=== PATIENT | female | born 1990 | race Caucasian/White ===

== ENCOUNTER 2018-11-07 16:49 | Emergency (ER) | END 2018-11-07 20:46 | disposition left against medical advice (07) | LOC: ER 16:49 | DX: Z53.21 Procedure and treatment not carried out due to patient leaving prior to being seen by health care provider (principal) ==

== ENCOUNTER 2019-03-05 13:31 | Emergency (ER) | payer SELFPAY ==
[2019-03-05] MEDS ORDERED: NORMAL SALINE 1000 ML 1,000 ML IV ONE ×3 (14:40→18:55)
[2019-03-05] MEDS ORDERED: ONDANSETRON HCL INJ/PF 4 MG/2 ML SDV IV ONE ×2 (14:40→15:50)
--- NOTE | 2019-03-05 14:43 | ER Document Report ---
ED General - General Chief Complaint: ETOH Abuse Stated Complaint: VOMITING Time Seen by Provider: 03/05/19 14:36 Mode of Arrival: Wheelchair Information source: Patient Notes: Patient presents emergency department with complaints of possible alcohol poisoning. Patient reports she drank a bottle AND a half of wine last night. Quit drinking at approximately 130. Reports she woke up at 430 vomiting. She cannot hold any fluids down. She complains of low back pain but denies abdominal pain. Denies headache fever diarrhea. Patient is actively vomiting. TRAVEL OUTSIDE OF THE [place] IN LAST 30 DAYS: No - HPI Onset: This morning Onset/Duration: Sudden Quality of pain: Achy Pain Level: 2 Associated symptoms: Vomiting Exacerbated by: Denies Relieved by: Denies Similar symptoms previously: No Recently seen / treated by doctor: No - Related Data Allergies/Adverse Reactions: No Known Allergies Allergy (Verified 03/05/19 13:31) Past Medical History - General Information source: Patient Last Menstrual Period: unsure - Social History Smoking Status: Unknown if Ever Smoked Cigarette use (# per day): No Frequency of alcohol use: Occasional Drug Abuse: None Lives with: Alone Family History: None Patient has suicidal ideation: No Patient has homicidal ideation: No - Medical History Medical History: Negative Surgical Hx: Negative Review of Systems - Review of Systems Notes: Review HPI for review of systems., All other systems negative Physical Exam - Vital signs Vitals: Temp Pulse Resp BP Pulse Ox 98.7 F 76 16 131/80 H 100 03/05/19 13:38 03/05/19 13:38 03/05/19 13:38 03/05/19 13:38 03/05/19 13:38 - Notes Notes: PHYSICAL EXAMINATION: GENERAL: looks like she doesnt feel good HEAD: Atraumatic, normocephalic. EYES: Pupils equal round , extraocular movements intact, sclera anicteric, conjunctiva are normal. ENT: nares patent, . Moist mucous membranes. NECK: Normal range of motion, supple without lymphadenopathy LUNGS: CTAB and equal. No wheezes rales or rhonchi. HEART: Regular rate and rhythm without murmurs ABDOMEN: Soft, no tenderness. No guarding, no rebound BACK: Reports low back ache EXTREMITIES: Normal range of motion, no pitting edema. No cyanosis. NEUROLOGICAL: Cranial nerves grossly intact. PSYCH: Normal mood, normal affect. SKIN: Warm, Dry, normal turgor, no rashes or lesions noted Course - Re-evaluation Re-evalutation: 03/05/19 14:43 Patient actively vomiting we will treat with fluids and Zofran. 03/05/19 15:50 Patient reports she still continued to vomit very shaky and cold. - Vital Signs Vital signs: Temp Pulse Resp BP Pulse Ox 98.7 F 76 16 131/80 H 100 03/05/19 13:38 03/05/19 13:38 03/05/19 13:38 03/05/19 13:38 03/05/19 13:38 - Laboratory Result Diagrams: 03/05/19 14:50 03/05/19 14:50 Laboratory results interpreted by me: 03/05/19 03/05/19 03/05/19 14:50 14:50 15:50 WBC 29.5 H Seg Neuts % (Manual) 97 H Lymphocytes % (Manual) 3 L Monocytes % (Manual) 0 L Abs Neuts (Manual) 28.6 H Abs Monocytes (Manual) 0.0 L Carbon Dioxide 14 L Anion Gap 25 H Calcium 10.3 H AST 111 H ALT 115 H Total Protein 9.8 H Albumin 5.9 H Urine Protein 30 H Urine Ketones 80 H Discharge - Discharge Clinical Impression: Vomiting Condition: Stable
[2019-03-05 15:10] LABS: HEMATOCRIT 44.8 % (36.0-47.0); HEMOGLOBIN 15.2 g/dL (12.0-15.5); MEAN CORPUSCULAR HEMOGLOBIN 32.3 pg (27.0-33.4); MEAN CORPUSCULAR HGB CONC 33.9 g/dL (32.0-36.0); MEAN CORPUSCULAR VOLUME 95 fl (80-97); PLATELET COUNT 286 10^3/uL (150-450); RED BLOOD COUNT 4.69 10^6/uL (3.72-5.28); RED CELL DISTRIBUTION WIDTH 13.1 % (11.5-14.0); WHITE BLOOD COUNT 29.5 10^3/uL (4.0-10.5)
[2019-03-05 15:35] LABS: ABSOLUTE LYMPHOCYTES# (MANUAL) 0.9 10^3/uL (0.5-4.7); BASOPHILS % (MANUAL) 0 % (0-2); EOSINOPHILS % (MANUAL) 0 % (0-6); LYMPHOCYTES % (MANUAL) 3 % (13-45); MONOCYTES % (MANUAL) 0 % (3-13); PLATELET COMMENT ADEQUATE; RBC MORPHOLOGY COMMENT NORMO-CYTIC/CHROMIC; SEGMENTED NEUTROPHILS % (MAN) 97 % (42-78); TOTAL CELLS COUNTED 100
[2019-03-05 15:40] LABS: ALANINE AMINOTRANSFERASE 115 U/L (9-52); ALBUMIN 5.9 g/dL (3.5-5.0); ALKALINE PHOSPHATASE 72 U/L (38-126); ASPARTATE AMINO TRANSFERASE 111 U/L (14-36); BILIRUBIN,DIRECT 0.3 mg/dL (0.0-0.4); BILIRUBIN,TOTAL 0.5 mg/dL (0.2-1.3); BLOOD UREA NITROGEN 15 mg/dL (7-20); CALCIUM 10.3 mg/dL (8.4-10.2); CARBON DIOXIDE 14 mmol/L (22-30); CHLORIDE 104 mmol/L (98-107); GLUCOSE 104 mg/dL (75-110); POTASSIUM 4.7 mmol/L (3.6-5.0); SODIUM 142.9 mmol/L (137-145); TOTAL PROTEIN 9.8 g/dL (6.3-8.2)
[2019-03-05 15:41] LABS: ANION GAP 25 (5-19)
[2019-03-05 16:14] LABS: APPEARANCE,URINE SLIGHTLY-CLOUDY; BILIRUBIN,URINE NEGATIVE (NEGATIVE); COLOR,URINE YELLOW; GLUCOSE, URINE NEGATIVE (NEGATIVE); KETONES,URINE 80 mg/dL (NEGATIVE); LEUKOCYTE ESTERASE,URINE NEGATIVE (NEGATIVE); NITRITE,URINE NEGATIVE (NEGATIVE); PROTEIN,URINE 30 mg/dL (NEGATIVE); URINE SPECIFIC GRAVITY 1.018; UROBILINOGEN,URINE NEGATIVE mg/dL (<2.0)
--- NOTE | 2019-03-05 16:31 | ER Document Report ---
ED Medical Screen (RME) - General Chief Complaint: ETOH Abuse Stated Complaint: VOMITING Time Seen by Provider: 03/05/19 14:36 Mode of Arrival: Wheelchair Information source: Patient Notes: Patient presents emergency department with complaints of possible alcohol poisoning. Patient reports she drank a bottle AND a half of wine last night. Quit drinking at approximately 130. Reports she woke up at 430 vomiting. She cannot hold any fluids down. She complains of low back pain but denies abdominal pain. Denies headache fever diarrhea. Patient is actively vomiting. 03/05/19 14:43 Patient actively vomiting we will treat with fluids and Zofran. 03/05/19 15:50 Patient reports she still continued to vomit very shaky and cold. Zofran and another liter of fluid ordered 03/05/19 16:31 Patient is still actively vomiting charge nurse noted. Patient is to be taken to her room I have greeted and performed a rapid initial assessment of this patient. A comprehensive ED assessment and evaluation of the patient, analysis of test results and completion of the medical decision making process will be conducted by additional ED providers. Dictation of this chart was performed using voice recognition software; therefore, there may be some unintended grammatical errors. TRAVEL OUTSIDE OF THE [place] IN LAST 30 DAYS: No - Related Data Allergies/Adverse Reactions: No Known Allergies Allergy (Verified 03/05/19 13:31) Past Medical History - General Last Menstrual Period: unsure - Social History Cigarette use (# per day): No Chew tobacco use (# tins/day): No Frequency of alcohol use: Occasional Drug Abuse: None Renal/ Medical History: Denies: Hx Peritoneal Dialysis Surgical Hx: Negative Physical Exam - Vital signs Vitals: Temp Pulse Resp BP Pulse Ox 98.7 F 76 16 131/80 H 100 03/05/19 13:38 03/05/19 13:38 03/05/19 13:38 03/05/19 13:38 03/05/19 13:38 Course - Vital Signs Vital signs: Temp Pulse Resp BP Pulse Ox 98.7 F 76 16 131/80 H 100 03/05/19 13:38 03/05/19 13:38 03/05/19 13:38 03/05/19 13:38 03/05/19 13:38 - Laboratory Result Diagrams: 03/05/19 14:50 03/05/19 14:50 Laboratory results interpreted by me: 03/05/19 03/05/19 03/05/19 14:50 14:50 15:50 WBC 29.5 H Seg Neuts % (Manual) 97 H Lymphocytes % (Manual) 3 L Monocytes % (Manual) 0 L Abs Neuts (Manual) 28.6 H Abs Monocytes (Manual) 0.0 L Carbon Dioxide 14 L Anion Gap 25 H Calcium 10.3 H AST 111 H ALT 115 H Total Protein 9.8 H Albumin 5.9 H Urine Protein 30 H Urine Ketones 80 H Doctor's Discharge - Discharge Clinical Impression: Vomiting Condition: Stable
--- NOTE | 2019-03-05 19:07 | ER Document Report ---
ED General - General Chief Complaint: ETOH Abuse Stated Complaint: VOMITING Time Seen by Provider: 03/05/19 14:36 Mode of Arrival: Wheelchair TRAVEL OUTSIDE OF THE [place] IN LAST 30 DAYS: No - HPI Notes: Patient is a 28-year-old female presents emergency department for evaluation of vomiting, headache, just generally not feeling well. She states that last night she was drinking alcohol heavily. She admits to drinking over a bottle and a half of red wine. She was by herself. She states that today she has headache, vomiting, generally just feels poor. She denies use of salome mitten drugs with the exception of marijuana, which she only uses occasionally. I asked her if she drinks like this regularly, her reply is "I cannot, I have to have a job." This is not the worst headache of her life. She denies any trauma. - Related Data Allergies/Adverse Reactions: No Known Allergies Allergy (Verified 03/05/19 13:31) Past Medical History - General Information source: Patient Last Menstrual Period: unsure - Social History Smoking Status: Never Smoker Cigarette use (# per day): No Chew tobacco use (# tins/day): No Frequency of alcohol use: Occasional Drug Abuse: None Family History: Other - Unknown, patient is adopted Patient has suicidal ideation: No Patient has homicidal ideation: No Renal/ Medical History: Denies: Hx Peritoneal Dialysis Surgical Hx: Negative Review of Systems - Review of Systems Constitutional: See HPI EENT: No symptoms reported Cardiovascular: No symptoms reported Respiratory: No symptoms reported Gastrointestinal: See HPI Genitourinary: No symptoms reported Musculoskeletal: No symptoms reported Skin: No symptoms reported Neurological/Psychological: No symptoms reported Physical Exam - Vital signs Vitals: Temp Pulse Resp BP Pulse Ox 98.7 F 76 16 131/80 H 100 03/05/19 13:38 03/05/19 13:38 03/05/19 13:38 03/05/19 13:38 03/05/19 13:38 - Notes Notes: Vital signs reviewed, please refer to chart. Head is normocephalic, atraumatic. Pupils equal round, reactive to light. Neck is supple without meningismus. Heart is regular rate and rhythm. Lungs are clear to auscultation bilaterally. Abdomen is soft, nontender, normoactive bowel sounds throughout. Extremities without cyanosis, clubbing. Posterior calves are nontender. Peripheral pulses are equal. Skin is warm and dry. Patient is awake, alert, oriented x3. Cranial nerves II - XII are grossly intact without focal neurological deficits. Strength is plus 5 out of 5 bilateral lower extremities. Sensation is intact. Reflexes symmetrical. Intact [id number], rapid alternating movements, [id number]. Course - Re-evaluation Re-evalutation: 03/05/19 19:03 [facility] emerge department for evaluation. Laboratory investigations were obtained, she was given IV fluids. Laboratory investigations revealed a significant anion gap metabolic acidosis. My strong suspicion is this is a lactic acidosis secondary to ethanol ingestion. Patient is given IV fluids, is feeling significantly improved. She is warned against the dangers of binge drinking. I do have my suspicions that she does have a chronic alcohol dependence. I will give her information in regards to that. Otherwise, she will be sent home with nausea medication, close follow-up. She is to return to the ED with worsening or new concerning symptoms of any sort. - Vital Signs Vital signs: Temp Pulse Resp BP Pulse Ox 98.7 F 76 20 114/63 98 03/05/19 13:38 03/05/19 13:38 03/05/19 18:01 03/05/19 18:01 03/05/19 18:01 - Laboratory Result Diagrams: 03/05/19 14:50 03/05/19 14:50 Laboratory results interpreted by me: 03/05/19 03/05/19 03/05/19 14:50 14:50 15:50 WBC 29.5 H Seg Neuts % (Manual) 97 H Lymphocytes % (Manual) 3 L Monocytes % (Manual) 0 L Abs Neuts (Manual) 28.6 H Abs Monocytes (Manual) 0.0 L Carbon Dioxide 14 L Anion Gap 25 H Calcium 10.3 H AST 111 H ALT 115 H Total Protein 9.8 H Albumin 5.9 H Urine Protein 30 H Urine Ketones 80 H Discharge - Discharge Clinical Impression: Nausea and vomiting, Increased anion gap metabolic acidosis, Alcohol abuse Condition: Stable Disposition: HOME, SELF-CARE Instructions: Vomiting ([facility]), Intravenous (IV) Fluids ([facility]) Additional Instructions: Follow-up with primary care next week. Avoid binge drinking in the future. You should consider quitting drinking alcohol entirely. If you develop worsening or new concerning symptoms of any sort, return immediately to the emergency depar tment for reevaluation. Referrals: JOSELUIS CROUCH MD [ACTIVE STAFF] - Follow up as needed [facility] [NO [facility]AL MD] - Follow up as needed
[2019-03-05 20:37] VITALS: BP 111/55
[2019-03-05] MEDS ORDERED: ONDANSETRON ODT 4 MG TAB (6 TAB/ER DISP) PO PRN (20:46)
== END 2019-03-05 20:53 | disposition home or self-care (01) ==
LOC: ER 13:31
DX: R11.2 Nausea with vomiting, unspecified (principal); E87.2 Acidosis; F10.10 Alcohol abuse, uncomplicated; R51 Headache
CPT/HCPCS: 96376; 99284; 96361; 96374; 36415; 84703; 85025; 80053; 81001; J2405; J7030

== ENCOUNTER 2019-03-06 17:27 | Emergency (ER) | payer SELFPAY ==
--- NOTE | 2019-03-06 19:44 | ER Document Report ---
Addendum entered and electronically signed by ANGELITO BARBOSA PA-C 03/06/19 19:45: Course - Re-evaluation Re-evalutation: 03/06/19 19:45 Neg yesterday. - Vital Signs Vital signs: Temp Pulse Resp BP Pulse Ox 98.4 F 64 20 144/82 H 99 03/06/19 18:21 03/06/19 18:21 03/06/19 18:21 03/06/19 18:21 03/06/19 18:21 Original Note: ED Medical Screen (RME) - General Chief Complaint: Nausea/Vomiting Stated Complaint: DEHYDRATION Time Seen by Provider: 03/06/19 19:39 TRAVEL OUTSIDE OF THE [place] IN LAST 30 DAYS: No - HPI Notes: 03/06/19 19:43 Patient is a 28-year-old female with a history of anxiety/depression who presents complaining of constant nausea and vomiting since 4:30 AM. Patient states that she does have some abdominal soreness after vomiting so many times, but no other pain. Patient has been noted to be continuously vomiting in the waiting room by our staff at the front. She was seen yesterday for similar symptoms with a suspicion of binge drinking as a partial culprit. Patient states that she has been taking the nausea medicine that she was sent home with with no relief. She does have a surgical history of appendectomy. Denies CLEMENTE, fever, neck pain, URI, CP, SOB, dysuria, back pain, or rash. I have treated and performed a rapid initial assessment of this patient. A comprehensive ED assessment and evaluation of the patient, analysis of test results and completion of medical decision making process will be conducted by additional ED providers. PHYSICAL EXAMINATION: GENERAL: Well-appearing, well-nourished and in no acute distress. A&Ox4. Answers questions appropriately. Dry heaving in triage. LUNGS: Breath sounds clear to auscultation bilaterally and equal. No wheezes rales or rhonchi. HEART: Regular rate and rhythm without murmurs, rubs, gallops. ABDOMEN: Soft, nondistended abdomen. No guarding, no rebound. Normal bowel sounds present. No CVA tenderness bilaterally. + mild epigastric tenderness (cannot elicit thorough abd exam w/o bed, however). - Related Data Allergies/Adverse Reactions: No Known Allergies Allergy (Verified 03/05/19 13:31) Past Medical History Renal/ Medical History: Denies: Hx Peritoneal Dialysis Physical Exam - Vital signs Vitals: Temp Pulse Resp BP Pulse Ox 98.4 F 64 20 144/82 H 99 03/06/19 18:21 03/06/19 18:21 03/06/19 18:21 03/06/19 18:21 03/06/19 18:21 Course - Vital Signs Vital signs: Temp Pulse Resp BP Pulse Ox 98.4 F 64 20 144/82 H 99 03/06/19 18:21 03/06/19 18:21 03/06/19 18:21 03/06/19 18:21 03/06/19 18:21
[2019-03-06] MEDS ORDERED: PROMETHAZINE HCL INJ 25 MG/1 ML VIAL IM ONE (19:45)
[2019-03-06] MEDS ORDERED: NORMAL SALINE 1000 ML 1,000 ML IV PRN (19:45)
[2019-03-06 21:42] LABS: HEMATOCRIT 37.9 % (36.0-47.0); HEMOGLOBIN 13.3 g/dL (12.0-15.5); MEAN CORPUSCULAR HEMOGLOBIN 32.4 pg (27.0-33.4); MEAN CORPUSCULAR VOLUME 93 fl (80-97); PLATELET COUNT 197 10^3/uL (150-450); RED BLOOD COUNT 4.09 10^6/uL (3.72-5.28); RED CELL DISTRIBUTION WIDTH 13.2 % (11.5-14.0); WHITE BLOOD COUNT 18.1 10^3/uL (4.0-10.5)
[2019-03-06 21:59] LABS: ABSOLUTE LYMPHOCYTES# (MANUAL) 0.9 10^3/uL (0.5-4.7); BAND NEUTROPHILS % (MANUAL) 1 % (3-5); BASOPHILS % (MANUAL) 0 % (0-2); EOSINOPHILS % (MANUAL) 0 % (0-6); LYMPHOCYTES % (MANUAL) 5 % (13-45); MONOCYTES % (MANUAL) 0 % (3-13); SEGMENTED NEUTROPHILS % (MAN) 94 % (42-78); TOTAL CELLS COUNTED 100
[2019-03-06 22:00] LABS: RBC MORPHOLOGY COMMENT NORMO-CYTIC/CHROMIC
[2019-03-06 22:01] LABS: PLATELET COMMENT ADEQUATE
[2019-03-06 22:03] LABS: ALANINE AMINOTRANSFERASE 96 U/L (9-52); ALBUMIN 4.8 g/dL (3.5-5.0); ALKALINE PHOSPHATASE 56 U/L (38-126); ANION GAP 13 (5-19); ASPARTATE AMINO TRANSFERASE 90 U/L (14-36); BILIRUBIN,DIRECT 0.2 mg/dL (0.0-0.4); BILIRUBIN,TOTAL 0.8 mg/dL (0.2-1.3); BLOOD UREA NITROGEN 9 mg/dL (7-20); CALCIUM 9.6 mg/dL (8.4-10.2); CARBON DIOXIDE 24 mmol/L (22-30); CHLORIDE 100 mmol/L (98-107); GLUCOSE 110 mg/dL (75-110); LIPASE 51.4 U/L (23-300); POTASSIUM 3.8 mmol/L (3.6-5.0); SODIUM 136.6 mmol/L (137-145); TOTAL PROTEIN 7.8 g/dL (6.3-8.2)
--- NOTE | 2019-03-07 00:32 | ER Document Report ---
ED General - General Chief Complaint: Nausea/Vomiting Stated Complaint: DEHYDRATION Time Seen by Provider: 03/06/19 19:39 TRAVEL OUTSIDE OF THE [place] IN LAST 30 DAYS: No - Related Data Allergies/Adverse Reactions: No Known Allergies Allergy (Verified 03/05/19 13:31) Past Medical History - Social History Smoking Status: Unknown if Ever Smoked Chew tobacco use (# tins/day): No Frequency of alcohol use: Social Drug Abuse: None Family History: Other - Unknown, patient is adopted Patient has suicidal ideation: No Patient has homicidal ideation: No Renal/ Medical History: Denies: Hx Peritoneal Dialysis Psychiatric Medical History: Reports: Hx Depression Physical Exam - Vital signs Vitals: Temp Pulse Resp BP Pulse Ox 98.4 F 64 20 144/82 H 99 03/06/19 18:21 03/06/19 18:21 03/06/19 18:21 03/06/19 18:21 03/06/19 18:21 Course - Vital Signs Vital signs: Temp Pulse Resp BP Pulse Ox 98.4 F 64 20 144/82 H 99 03/06/19 18:21 03/06/19 18:21 03/06/19 18:21 03/06/19 18:21 03/06/19 18:21 - Laboratory Result Diagrams: 03/06/19 21:30 03/06/19 21:30 Laboratory results interpreted by me: 03/06/19 03/06/19 21:30 21:30 WBC 18.1 H Seg Neuts % (Manual) 94 H Band Neutrophils % 1 L Lymphocytes % (Manual) 5 L Monocytes % (Manual) 0 L Abs Neuts (Manual) 17.2 H Abs Monocytes (Manual) 0.0 L Sodium 136.6 L AST 90 H ALT 96 H
[2019-03-07] MEDS ORDERED: CAPSAICIN HP 0.075% CREAM 60 GM TP ONE (00:42)
--- NOTE | 2019-03-07 00:42 | ER Document Report ---
ED General - General Chief Complaint: Nausea/Vomiting Stated Complaint: DEHYDRATION Time Seen by Provider: 03/06/19 19:39 Notes: Patient is a 28-year-old female who presents to the emergency department with a chief complaint of vomiting. She was seen in the emergency department 2 days ago with the same issues. She states that she took her Zofran that was given to her the other day, but continues to have vomiting. Has not been able to keep anything down. She received Phenergan in triage, and states that she does feel a little better. Patient does admit to alcohol use, but states that she only drinks sometimes. I asked her also if she uses marijuana and she does use marijuana on a daily basis and has been for a while. She denies hematemesis, hematochezia, fever, or any other symptoms. Denies any fever. TRAVEL OUTSIDE OF THE [place] IN LAST 30 DAYS: No - Related Data Allergies/Adverse Reactions: No Known Allergies Allergy (Verified 03/05/19 13:31) Past Medical History - Social History Smoking Status: Unknown if Ever Smoked Chew tobacco use (# tins/day): No Frequency of alcohol use: Social Drug Abuse: None Family History: Other - Unknown, patient is adopted Patient has suicidal ideation: No Patient has homicidal ideation: No Renal/ Medical History: Denies: Hx Peritoneal Dialysis Psychiatric Medical History: Reports: Hx Depression Review of Systems - Review of Systems Notes: REVIEW OF SYSTEMS: CONSTITUTIONAL : Denies recent illness. Denies recent unintentional weight loss. Denies fever, chills, or sweats. EENT: Denies eye, ear, throat, or mouth pain, discharge, or symptoms. Denies nasal or sinus congestion. CARDIOVASCULAR: Denies chest pain. RESPIRATORY: Denies shortness of breath, cough, congestion, difficulty breathing, or wheezing. GASTROINTESTINAL: See HPI GENITOURINARY: Denies difficulty urinating, burning, blood in urine, urgency or frequency. MUSCULOSKELETAL: Denies neck and back pain. Denies joint pain or swelling. SKIN: Denies rash, itchiness, or lesions HEMATOLOGIC : Denies easy bruising or bleeding. LYMPHATIC: Denies swollen, painful, enlarged glands. NEUROLOGICAL: Denies no numbness or tingling denies weakness. Denies headache. Denies altered mental status. Denies alteration in speech. PSYCHIATRIC: Denies stress, anxiety, alteration in sleep patterns, or depres stephani. All other systems reviewed and negative. Physical Exam - Vital signs Vitals: Temp Pulse Resp BP Pulse Ox 98.4 F 64 20 144/82 H 99 03/06/19 18:21 03/06/19 18:21 03/06/19 18:21 03/06/19 18:21 03/06/19 18:21 - Notes Notes: PHYSICAL EXAMINATION: GENERAL: Appears well, healthy, well-nourished, no acute distress. HEAD: Normocephalic, atraumatic. EYES: PERRL, conjunctiva normal, all extraocular movements intact, sclera nonicteric ENT: Moist mucous membranes. NECK: Supple, no noticeable swelling, redness, rash. Normal range of motion. LUNGS: Equal breath sounds bilaterally and clear to auscultation. No wheezes rales or rhonchi. CARDIOVASCULAR: S1-S2, regular rate, regular rhythm. Radial pulses 2+, normal. ABDOMEN: Normoactive bowel sounds. Soft, mildly tender, no guarding, no rebound tenderness, and no masses palpated. Vomiting in room. EXTREMITIES: Normal strength and range of motion, no pitting or edema. No cyanosis. NEUROLOGICAL: Moves all extremities upon command. Strength 5/5 in all extremities. PSYCH: Normal mood, normal affect. SKIN: Warm, dry. No rash, lesions, ulcerations noted. Normal skin turgor. Course - Re-evaluation Re-evalutation: 03/07/19 02:06 Patient says she does feel better after receiving the Capscasian cream. States she feels a little queasy, but her pain is much better. 03/07/19 03:14 Patient is now vomiting, although she did get her Phenergan about 5 minutes ago. She will receive a dose of Haldol to help her calm down. An EKG will be done beforehand. 03/07/19 03:28 Patient's QTC is 503. She will receive an instead of Haldol. Will reassess and order another EKG. 03/07/19 07:26 Patient is tolerating oral fluids well she is also ambulating with difficulty. She will be given Phenergan to go home with. 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 I have a very low suspicion for pancreatitis, acute GI bleed, bowel obstruction, mesenteric ischemia, acute appendicitis, or any other life-threatening etiology at this time. I have had a lengthy conversation with her about stopping marijuana use. She is to follow-up with her primary care provider as needed. She also has Capscasian cream to use. She is in agreement with this plan. Verbal discharge instructions were given to the patient. They verbalized understanding. They are stable for discharge. Documentation was completed using voice recognition software, therefore there may be some unintended grammatical or punctual errors. - Vital Signs Vital signs: Temp Pulse Resp BP Pulse Ox 98.0 F 51 L 16 143/98 H 99 03/07/19 07:43 03/07/19 07:43 03/07/19 07:43 03/07/19 07:43 03/07/19 07:43 - Laboratory Result Diagrams: 03/06/19 21:30 03/06/19 21:30 Laboratory results interpreted by me: 03/06/19 03/06/19 03/07/19 21:30 21:30 01:40 WBC 18.1 H Seg Neuts % (Manual) 94 H Band Neutrophils % 1 L Lymphocytes % (Manual) 5 L Monocytes % (Manual) 0 L Abs Neuts (Manual) 17.2 H Abs Monocytes (Manual) 0.0 L Sodium 136.6 L AST 90 H ALT 96 H Urine Protein 30 H Urine Ketones 80 H Urine Blood MODERATE H Ur Leukocyte Esterase TRACE H Discharge - Discharge Clinical Impression: Nausea and vomiting Qualifiers: Vomiting type: unspecified Vomiting Intractability: unspecified Qualified Code(s): R11.2 - Nausea with vomiting, unspecified Condition: Stable Disposition: HOME, SELF-CARE Instructions: Vomiting ([facility]) Additional Instructions: You are seen today in the emergency department for nausea and vomiting. Your labs better than the other day. Your vomiting is most likely due to your marijuana use. Please stop using marijuana, as this is not helping. You can use capsaicin cream, 4 times a day to help with abdominal pain. You are also being sent home with Phenergan, medication for nausea and vomiting. Follow-up with your primary care provider in regards to this visit. Prescriptions: Promethazine HCl [Phenergan 25 mg Tablet] 1 - 2 tab PO Q6H PRN #15 tablet PRN Reason: Forms: Return to Work
[2019-03-07] MEDS ORDERED: CAPSAICIN 0.025% CREAM 60 GM TP ONE (00:43)
[2019-03-07] MEDS ORDERED: NORMAL SALINE 1000 ML 1,000 ML IV PRN (01:00)
[2019-03-07] MEDS ORDERED: CAPSAICIN 0.025% CREAM 60 GM ONE (01:17)
[2019-03-07] MEDS ORDERED: PROMETHAZINE HCL INJ 25 MG/1 ML VIAL IV ONE (02:07)
[2019-03-07 02:21] LABS: APPEARANCE,URINE CLOUDY; BILIRUBIN,URINE NEGATIVE (NEGATIVE); COLOR,URINE YELLOW; GLUCOSE, URINE NEGATIVE (NEGATIVE); KETONES,URINE 80 mg/dL (NEGATIVE); LEUKOCYTE ESTERASE,URINE TRACE (NEGATIVE); NITRITE,URINE NEGATIVE (NEGATIVE); PROTEIN,URINE 30 mg/dL (NEGATIVE); UROBILINOGEN,URINE NEGATIVE mg/dL (<2.0)
[2019-03-07 02:43] LABS: URINE AMPHETAMINES SCREEN NEGATIVE; URINE BARBITURATES SCREEN NEGATIVE; URINE BENZODIAZEPINES SCREEN NEGATIVE; URINE COCAINE SCREEN NEGATIVE; URINE MARIJUANA (THC) SCREEN UNCONFIRMED POSITIVE; URINE METHADONE SCREEN NEGATIVE; URINE PHENCYCLIDINE SCREEN NEGATIVE
[2019-03-07] MEDS ORDERED: HALOPERIDOL LACTATE INJ 5 MG/1 ML VIAL IV ONE (03:13)
[2019-03-07] MEDS ORDERED: LORAZEPAM INJ 2 MG/1 ML VIAL IV ONE (03:27)
[2019-03-07 07:43] VITALS: BP 143/98
--- NOTE | 2019-03-07 10:51 | EKG REPORT ---
SEVERITY:- ABNORMAL ECG - SINUS RHYTHM PROLONGED QT INTERVAL : Confirmed by: Tracie Duggna MD 07-Mar-2019 10:50:25
== END 2019-03-07 07:43 | disposition home or self-care (01) ==
LOC: ER 17:27
DX: R11.2 Nausea with vomiting, unspecified (principal); E86.0 Dehydration; F12.90 Cannabis use, unspecified, uncomplicated
CPT/HCPCS: 93005; 99284; 96372; 96361; 96374; 96375; 36415; 83690; 85025; 80053; 81001; 80307; 93010; J2060; J2550 ×2; J7030 ×2; J3490

== ENCOUNTER 2019-03-08 13:27 | Observation (INO) | payer SELFPAY ==
[2019-03-08] MEDS ORDERED: ONDANSETRON HCL INJ/PF 4 MG/2 ML SDV IV ONE ×2 (15:11→18:49)
--- NOTE | 2019-03-08 15:14 | ER Document Report ---
ED Medical Screen (RME) - General Chief Complaint: Nausea/Vomiting Stated Complaint: NAUSEA/VOMITING Time Seen by Provider: 03/08/19 15:07 Mode of Arrival: Medic Information source: Patient Notes: Patient is a 28-year-old female presenting to the emergency department for the third time in a week for vomiting. Patient reports that she smokes marijuana every day. She states they diagnosed her with cyclical vomiting syndrome. She reports that today she ate a tuna fish sandwich for lunch and began vomiting again. Of note patient is forcefully putting her fingers down her throat in triage trying to make herself vomit. Exam: Patient dry heaving in triage after sticking her fingers down her throat. Vital signs are all within normal limits. I have greeted and performed a rapid initial assessment of this patient. A comprehensive ED assessment and evaluation of the patient, analysis of test results and completion of the medical decision making process will be conducted by additional ED providers. Dictation of this chart was performed using voice recognition software; therefore, there may be some unintended grammatical errors. TRAVEL OUTSIDE OF THE [place] IN LAST 30 DAYS: No - Related Data Allergies/Adverse Reactions: No Known Allergies Allergy (Verified 03/05/19 13:31) Past Medical History - Social History Frequency of alcohol use: Occasional Drug Abuse: Marijuana Renal/ Medical History: Denies: Hx Peritoneal Dialysis Psychiatric Medical History: Reports: Hx Depression Past Surgical History: Reports: Hx Appendectomy Physical Exam - Vital signs Vitals: Temp Pulse Resp BP Pulse Ox 98.7 F 67 26 H 159/93 H 98 03/08/19 13:35 03/08/19 13:35 03/08/19 13:35 03/08/19 13:35 03/08/19 13:35 Course - Vital Signs Vital signs: Temp Pulse Resp BP Pulse Ox 98.7 F 67 26 H 159/93 H 98 03/08/19 13:35 03/08/19 13:35 03/08/19 13:35 03/08/19 13:35 03/08/19 13:35
[2019-03-08] MEDS ORDERED: METOCLOPRAMIDE HCL INJ/PF 10 MG/2 ML SDV IV ONE ×2 (15:34→21:17)
[2019-03-08 16:34] LABS: ABSOLUTE BASOPHILS # (AUTO) 0.1 10^3/uL (0.0-0.2); ABSOLUTE LYMPHOCYTES (AUTO) 0.8 10^3/uL (0.5-4.7); ABSOLUTE MONOCYTES (AUTO) 0.3 10^3/uL (0.1-1.4); ABSOLUTE NEUT (AUTO) 7.9 10^3/uL (1.7-8.2); HEMATOCRIT 36.3 % (36.0-47.0); HEMOGLOBIN 12.9 g/dL (12.0-15.5); LYMPHOCYTES % (AUTO) 8.5 % (13-45); MEAN CORPUSCULAR HEMOGLOBIN 33.3 pg (27.0-33.4); MEAN CORPUSCULAR HGB CONC 35.5 g/dL (32.0-36.0); MEAN CORPUSCULAR VOLUME 94 fl (80-97); MONOCYTES % (AUTO) 2.9 % (3-13); PLATELET COUNT 173 10^3/uL (150-450); RED BLOOD COUNT 3.86 10^6/uL (3.72-5.28); RED CELL DISTRIBUTION WIDTH 12.7 % (11.5-14.0); SEGMENTED NEUTROPHILS % (AUTO) 87.6 % (42-78); TOTAL CELLS COUNTED % (AUTO) 100 %
[2019-03-08 16:52] LABS: ALANINE AMINOTRANSFERASE 72 U/L (9-52); ALBUMIN 4.9 g/dL (3.5-5.0); ALKALINE PHOSPHATASE 59 U/L (38-126); ANION GAP 13 (5-19); ASPARTATE AMINO TRANSFERASE 43 U/L (14-36); BILIRUBIN,DIRECT 0.2 mg/dL (0.0-0.4); BILIRUBIN,TOTAL 0.8 mg/dL (0.2-1.3); BLOOD UREA NITROGEN 6 mg/dL (7-20); CALCIUM 9.3 mg/dL (8.4-10.2); CARBON DIOXIDE 25 mmol/L (22-30); CHLORIDE 100 mmol/L (98-107); GLUCOSE 111 mg/dL (75-110); POTASSIUM 3.6 mmol/L (3.6-5.0); SODIUM 138.1 mmol/L (137-145); TOTAL PROTEIN 7.8 g/dL (6.3-8.2)
[2019-03-08] MEDS ORDERED: HALOPERIDOL LACTATE INJ 5 MG/1 ML VIAL IV ONE (19:55)
[2019-03-08] MEDS ORDERED: NORMAL SALINE 1000 ML 1,000 ML IV ONE ×2 (19:55→22:46)
[2019-03-08] MEDS ORDERED: MORPHINE SULFATE 10 MG/ML INJ IV ONE (20:32)
[2019-03-08] MEDS ORDERED: DIPHENHYDRAMINE HCL 50 MG/ML VIAL IV ONE (20:32)
--- NOTE | 2019-03-08 20:48 | EKG REPORT ---
SEVERITY:- BORDERLINE ECG - SINUS RHYTHM BORDERLINE T ABNORMALITIES, ANT-LAT LEADS : Confirmed by: Tracie Duggan MD 08-Mar-2019 20:46:49
[2019-03-08 21:50] LABS: APPEARANCE,URINE CLOUDY; BILIRUBIN,URINE NEGATIVE (NEGATIVE); COLOR,URINE YELLOW; GLUCOSE, URINE NEGATIVE (NEGATIVE); KETONES,URINE TRACE mg/dL (NEGATIVE); LEUKOCYTE ESTERASE,URINE NEGATIVE (NEGATIVE); NITRITE,URINE NEGATIVE (NEGATIVE); PROTEIN,URINE NEGATIVE (NEGATIVE); URINE SPECIFIC GRAVITY 1.015; UROBILINOGEN,URINE NEGATIVE mg/dL (<2.0)
--- NOTE | 2019-03-08 22:05 | RADIOLOGY REPORT (SQ) ---
CT ABDOMEN PELVIS WITH IV CONTRAST EXAM DATE: 03/08/2019 8:03 PM CDT HISTORY: Abdominal pain. COMPARISON: None. TECHNIQUE: CT scan of the abdomen and pelvis was performed with IV contrast. This exam was performed according to our departmental dose-optimization program, which includes automated exposure control, adjustment of the mA and/or kV according to patient size and/or use of iterative reconstruction technique. FINDINGS: The lung bases are clear. No pleural or pericardial effusions. There is no hiatal hernia. The liver, spleen, pancreas, gallbladder, adrenal glands, and kidneys are unremarkable. Simple bilateral renal cysts. No urinary stones are seen. The pelvic organs are also unremarkable. A small amount of free fluid is present in the pelvic cul-de-sac, likely physiologic. No small bowel obstruction. The appendix is nonvisualized. There is no evidence of diverticulitis. No intraperitoneal free air is identified. The aorta is normal caliber. No acute bony findings are seen. No pathologic body wall hernia is seen. IMPRESSION: Mild pelvic free fluid which may be due to ovarian pathology. Consider pelvic ultrasound for further evaluation, if clinically indicated.
[2019-03-08 22:13] LABS: BACTERIA (WET MOUNT) 3+ BACTERIA SEEN; EPITHELIALS (WET MOUNT) 3+ EPITHELIALS SEEN; RBCS (WET MOUNT) NO RBCS SEEN; T.VAGINALIS (WET MOUNT) NO TRICHOMONAS SEEN; WBCS (WET MOUNT) 1+ WBCS SEEN; YEAST (WET MOUNT) NO YEAST SEEN
--- NOTE | 2019-03-08 22:39 | ER Document Report ---
ED General - General Chief Complaint: Nausea Stated Complaint: NAUSEA/VOMITING Time Seen by Provider: 03/08/19 15:07 Mode of Arrival: Medic Information source: Patient Notes: This is a 28-year-old female` that presents to the emergency room with persistent nausea and vomiting over the past several days. Patient states she is not able to tolerate fluids. This is the patient's third visit in the last days to the emergency room peer on the first visit, her labs showed significant leukocytosis and an anion gap. She presented a day later with persistent nausea and vomiting. She was treated then with antiemetics and IV fluids. She presents again tonight via EMS with persistent symptoms. TRAVEL OUTSIDE OF THE [place] IN LAST 30 DAYS: No - HPI Onset: Last week Onset/Duration: Gradual Quality of pain: Dull Severity: Moderate Pain Level: 2 Associated symptoms: Diarrhea, Fever - Patient has had low-grade fever, Nausea, Vomiting. denies: Chest pain, Shortness of breath Exacerbated by: Denies Relieved by: Denies Similar symptoms previously: Yes Recently seen / treated by doctor: Yes - Related Data Allergies/Adverse Reactions: No Known Allergies Allergy (Verified 03/05/19 13:31) Past Medical History - General Information source: Patient - Social History Smoking Status: Never Smoker Cigarette use (# per day): No Chew tobacco use (# tins/day): No Frequency of alcohol use: Occasional Drug Abuse: Marijuana Lives with: Family Family History: Other - Unknown, patient is adopted Patient has suicidal ideation: No Patient has homicidal ideation: No - Past Medical History Cardiac Medical History: Reports: None Pulmonary Medical History: Reports: None Neurological Medical History: Reports: None Endocrine Medical History: Reports: None Renal/ Medical History: Reports: None. Denies: Hx Peritoneal Dialysis Malignancy Medical History: Reports: None GI Medical History: Reports: None Musculoskeletal Medical History: Reports None Skin Medical History: Reports None Psychiatric Medical History: Reports: Hx Depression Traumatic Medical History: Reports: None Infectious Medical History: Reports: None Past Surgical History: Reports: Hx Appendectomy Review of Systems - Review of Systems Constitutional: Fever, Weakness. denies: Chills EENT: No symptoms reported Cardiovascular: No symptoms reported Respiratory: No symptoms reported Gastrointestinal: Abdominal pain, Diarrhea, Nausea, Vomiting Genitourinary: No symptoms reported Female Genitourinary: No symptoms reported Musculoskeletal: No symptoms reported Skin: No symptoms reported Hematologic/Lymphatic: No symptoms reported Neurological/Psychological: No symptoms reported Physical Exam - Vital signs Vitals: Temp Pulse Resp BP Pulse Ox 98.7 F 67 26 H 159/93 H 98 03/08/19 13:35 03/08/19 13:35 03/08/19 13:35 03/08/19 13:35 03/08/19 13:35 Notes: Physical exam: GENERAL: Patient is alert and oriented x3, she is actively vomiting and looks in significant distress. HEAD: Atraumatic, normocephalic. There is no photophobia. EYES: Pupils equal round and reactive to light, extraocular movements intact, sclera anicteric, conjunctiva are normal. ENT: TMs normal, nares patent, oropharynx clear without exudates. Moist mucous membranes. NECK: Normal range of motion, supple without obvious mass or JVD. Patient has no neck stiffness or obvious meningismus. LUNGS: Breath sounds clear to auscultation bilaterally and equal. No wheezes rales or rhonchi. HEART: Regular rate and rhythm without murmurs, rubs or gallops. ABDOMEN: Soft, hypoactive bowel sounds. She does have tenderness to palpation of the upper abdomen. There is no guarding or rebound. no masses appreciated. EXTREMITIES: Normal range of motion, no pitting or edema. No clubbing or cyanosis. NEUROLOGICAL: Cranial nerves II through XII grossly intact. Normal speech, moving all extremities. PSYCH: Normal mood, normal affect. SKIN: Warm, Dry, normal turgor, no rashes or lesions noted. Course - Re-evaluation Re-evalutation: 03/08/19 23:09 Note: On pelvic exam, the patient did not have any significant cervical motion tenderness or adnexal tenderness or adnexal masses. She did have some scant blood in the cervical canal but this is not necessarily abnormal. CT of the abdomen showed no acute process. There was some free fluid in the pelvis consistent with a physiologic process. Pelvic ultrasound was done and it shows an essentially normal pelvic ultrasound other than the fluid. While her white count is clearly improved and her anion gap clearly improved over the last several days, given the persistence of her symptoms, we will admit her to the hospital for continued IV fluids, IV antibiotics and monitoring. - Vital Signs Vital signs: Temp Pulse Resp BP Pulse Ox 100.6 F H 67 26 H 159/93 H 98 03/08/19 19:11 03/08/19 13:35 03/08/19 13:35 03/08/19 13:35 03/08/19 13:35 - Laboratory Result Diagrams: 03/08/19 16:18 03/08/19 16:18 Laboratory results interpreted by me: 03/08/19 03/08/19 03/08/19 16:18 16:18 16:18 Seg Neutrophils % 87.6 H Lymphocytes % 8.5 L Monocytes % 2.9 L BUN 6 L Glucose 111 H Lactic Acid AST 43 H ALT 72 H Urine Ketones TRACE H Urine Blood SMALL H 03/08/19 19:20 Seg Neutrophils % Lymphocytes % Monocytes % BUN Glucose Lactic Acid 2.2 H AST ALT Urine Ketones Urine Blood - Diagnostic Test Radiology reviewed: Image reviewed, Reports reviewed - CT of the abdomen shows no acute intra-abdominal process. There was some free fluid in the pelvic cul-de-sac. - EKG Interpretation by Me Rate: Normal Rhythm: NSR - EKG shows normal sinus rhythm with a ventricular rate of 73. QTc is 472 Discharge - Discharge Clinical Impression: Intractable vomiting and nausea Condition: Stable Disposition: ADMITTED OBSERVATION Admitting Provider: Dashawn (Hospitalist) Unit Admitted: Medical Floor
--- NOTE | 2019-03-08 23:13 | RADIOLOGY REPORT (SQ) ---
EXAM DESCRIPTION: US PELVIS TRANSVAGINAL COMPLETED DATE/TME: 03/08/2019 22:08 CLINICAL HISTORY: 28 years, Female, abd pain COMPARISON: Prior study from earlier the same day TECHNIQUE: Two the grayscale images of the pelvis were obtained transvaginally. Doppler was utilized. LIMITATIONS: None. FINDINGS: Uterus measures 8.2 x 4.4 x 3.3 cm in size. Endometrial stripe thickness measures 6 mm. Cervix measures 3.1 cm in length, and appears closed. Right ovary measures 2.2 x 3.3 x 2.1 cm in size. It demonstrates normal low resistance arterial waveforms as well as venous flow. In addition, a may contain a 1.2 x 0.9 cm anechoic lesion likely indicative of a functional cyst. Left ovary measures 2.5 x 1.7 x 1.6 cm in size. It demonstrates normal low resistance arterial waveforms as well as venous flow. A small amount of free fluid is noted about the pelvis. IMPRESSION: No acute sonographic abnormality. Small amount of free fluid in the pelvis, likely physiologic in a premenopausal female. copyright [address] [employer] [address]- All Rights Reserved
[2019-03-08] MEDS ORDERED: LORAZEPAM INJ 2 MG/1 ML VIAL IV ONE (23:19)
[2019-03-08] MEDS ORDERED: IPRATROPIUM/ALBUTEROL 0.5-2.5 MG/3 ML AMPUL NEB PRN (23:22)
[2019-03-08] MEDS ORDERED: ACETAMINOPHEN 325 MG TABLET PO PRN (23:22)
[2019-03-08 23:40] LABS: CHLAM PCR NOT DETECTED (NOT DETECT)
[2019-03-09] MEDS: HEPARIN SOD (PORCINE) 5,000 UNIT/ML 1 ML SYRINGE SUBCUT SCH ×3 (05:02→22:30)
--- NOTE | 2019-03-09 06:02 | PDOC H&P ---
History of Present Illness Admission Date/PCP: 03/08/19 23:44 Patient complains of: Nausea vomiting History of Present Illness: ALEXANDER HOWE is a 28 year old female with past medical history of depression, daily cannabis and occasional alcohol presents with 5 days of intractable nausea, vomiting and abdominal pain. She sought evaluation emergency room following a alcohol binge which revealed increased LFTs, leukocytosis and mild acidosis. She received IV fluids and symptomatic management but has returned a third time. Biochemically she shows improvement but with persistent LFT elevation and intractable nausea she receives 16 mg of Zofran then developed fever and is referred to the hospitalist for admission. Patient admits regular high intensity weight lifting, diet supplementation and rare alcohol binge. None since 03/04. She denies vomiting blood, chest pain or shortness of breath, she denies diarrhea. She denies previous episode. She denies relief of symptoms by showering. Past Medical History Cardiac Medical History: Reports: None Pulmonary Medical History: Reports: None Neurological Medical History: Reports: None Endocrine Medical History: Reports: None Renal/ Medical History: Reports: None Malignancy Medical History: Reports: None GI Medical History: Reports: None Musculoskeltal Medical History: Reports: None Skin Medical History: Reports: None Psychiatric Medical History: Reports: Depression Traumatic Medical History: Reports: None Infectious Medical History: Reports: None Past Surgical History Past Surgical History: Reports: Appendectomy Social History Information Source: Patient, [facility] Records Lives with: Family Smoking Status: Current Some Day Smoker Frequency of Alcohol Use: Occasional Hx Recreational Drug Use: Yes Drugs: Marijuana - Advance Directive Resuscitation Status: Full Code Family History Family History: Other - Unknown, patient is adopted Parental Family History Reviewed: Yes Children Family History Reviewed: Yes Sibling(s) Family History Reviewed.: Yes Medication/Allergy Home Medications: Ondansetron [Zofran Odt 4 mg Tablet] 1 tab PO Q4H PRN #15 tab.rapdis 03/05/19 Promethazine HCl [Phenergan 25 mg Tablet] 1 - 2 tab PO Q6H PRN #15 tablet 03/07/19 Allergies/Adverse Reactions: No Known Allergies Allergy (Verified 03/05/19 13:31) Review of Systems Constitutional: ABSENT: chills, fever(s), headache(s), weight gain, weight loss Eyes: ABSENT: visual disturbances Ears: ABSENT: hearing changes Cardiovascular: ABSENT: chest pain, dyspnea on exertion, edema, orthropnea, palpitations Respiratory: ABSENT: cough, hemoptysis Gastrointestinal: ABSENT: abdominal pain, constipation, diarrhea, hematemesis, hematochezia, nausea, vomiting Genitourinary: ABSENT: dysuria, hematuria Musculoskeletal: ABSENT: joint swelling Integumentary: ABSENT: rash, wounds Neurological: ABSENT: abnormal gait, abnormal speech, confusion, dizziness, focal weakness, syncope Psychiatric: ABSENT: anxiety, depression, homidical ideation, suicidal ideation Endocrine: ABSENT: cold intolerance, heat intolerance, polydipsia, polyuria Hematologic/Lymphatic: ABSENT: easy bleeding, easy bruising Physical Exam Vital Signs: Temp Pulse Resp BP Pulse Ox 99.1 F 52 L 16 131/85 H 98 03/09/19 04:22 03/09/19 04:22 03/09/19 04:22 03/09/19 04:22 03/09/19 04:22 Intake & Output 03/07/19 03/08/19 03/09/19 11:59 11:59 11:59 Weight 48.534 kg General appearance: PRESENT: no acute distress, well-developed, well-nourished Head exam: PRESENT: atraumatic, normocephalic Eye exam: PRESENT: conjunctiva pink, EOMI, PERRLA. ABSENT: scleral icterus Ear exam: PRESENT: normal external ear exam Mouth exam: PRESENT: moist, tongue midline Neck exam: ABSENT: carotid bruit, JVD, lymphadenopathy, thyromegaly Respiratory exam: PRESENT: clear to auscultation priscila. ABSENT: rales, rhonchi, wheezes Cardiovascular exam: PRESENT: RRR. ABSENT: diastolic murmur, rubs, systolic murmur Pulses: PRESENT: normal dorsalis pedis pul Vascular exam: PRESENT: normal capillary refill GI/Abdominal exam: PRESENT: normal bowel sounds, soft. ABSENT: distended, guarding, mass, organolmegaly, rebound, tenderness Rectal exam: PRESENT: deferred Extremities exam: PRESENT: full ROM. ABSENT: calf tenderness, clubbing, pedal edema Neurological exam: PRESENT: alert, awake, oriented to person, oriented to place, oriented to time, oriented to situation, CN II-XII grossly intact. ABSENT: motor sensory deficit Psychiatric exam: PRESENT: appropriate affect, normal mood. ABSENT: homicidal ideation, suicidal ideation Skin exam: PRESENT: dry, intact, warm. ABSENT: cyanosis, rash Results Laboratory Results: 03/08/19 16:18 03/08/19 16:18 03/08/19 03/08/19 03/08/19 16:18 16:18 16:18 WBC 9.0 RBC 3.86 Hgb 12.9 Hct 36.3 MCV 94 MCH 33.3 MCHC 35.5 RDW 12.7 Plt Count 173 Seg Neutrophils % 87.6 H Lymphocytes % 8.5 L Monocytes % 2.9 L Eosinophils % 0.0 Basophils % 1.0 Absolute Neutrophils 7.9 Absolute Lymphocytes 0.8 Absolute Monocytes 0.3 Absolute Eosinophils 0.0 Absolute Basophils 0.1 Sodium 138.1 Potassium 3.6 Chloride 100 Carbon Dioxide 25 Anion Gap 13 BUN 6 L Creatinine 0.55 Est GFR ( Amer) > 60 Est GFR (Non-Af Amer) > 60 Glucose 111 H Lactic Acid Calcium 9.3 Total Bilirubin 0.8 AST 43 H ALT 72 H Alkaline Phosphatase 59 Total Protein 7.8 Albumin 4.9 Lipase 97.9 Urine Color Urine Appearance Urine pH Ur Specific [place] Urine Protein Urine Glucose (UA) Urine Ketones Urine Blood Urine Nitrite Ur Leukocyte Esterase Urine WBC (Auto) Urine RBC (Auto) 03/08/19 03/08/19 16:18 19:20 WBC RBC Hgb Hct MCV MCH MCHC RDW Plt Count Seg Neutrophils % Lymphocytes % Monocytes % Eosinophils % Basophils % Absolute Neutrophils Absolute Lymphocytes Absolute Monocytes Absolute Eosinophils Absolute Basophils Sodium Potassium Chloride Carbon Dioxide Anion Gap BUN Creatinine Est GFR ( Amer) Est GFR (Non-Af Amer) Glucose Lactic Acid 2.2 H Calcium Total Bilirubin AST ALT Alkaline Phosphatase Total Protein Albumin Lipase Urine Color YELLOW Urine Appearance CLOUDY Urine pH 5.0 Ur Specific [place] 1.015 Urine Protein NEGATIVE Urine Glucose (UA) NEGATIVE Urine Ketones TRACE H Urine Blood SMALL H Urine Nitrite NEGATIVE Ur Leukocyte Esterase NEGATIVE Urine WBC (Auto) 1 Urine RBC (Auto) 0 Impressions: Abdomen/Pelvis CT 03/08/19 20:03 IMPRESSION: Mild pelvic free fluid which may be due to ovarian pathology. Consider pelvic ultrasound for further evaluation, if clinically indicated. Transvaginal US 03/08/19 22:08 IMPRESSION: No acute sonographic abnormality. Small amount of free fluid in the pelvis, likely physiologic in a premenopausal female. copyright 2011 [employer]- All Rights Reserved Assessment and Plan - Diagnosis (1) Alcoholic gastritis Is this a current diagnosis for this admission?: Yes Plan: Following alcohol binge, PPI and education (2) Cannabinoid hyperemesis syndrome Is this a current diagnosis for this admission?: Yes Plan: Symptomatic management and education. (3) Elevated LFTs Is this a current diagnosis for this admission?: Yes Plan: Acute hepatitis versus muscle derived. Follow-up hepatitis screen and total CK (4) Fever Is this a current diagnosis for this admission?: Yes Plan: Doubt infectious source, suspect high dose of Zofran. Blood culture PRN temperature greater than 100.2 - Time Time Spent with patient: 25-34 minutes - Inpatient Certification Medical Necessity: Need Close Monitoring Due to Risk of Patient Decompensation
[2019-03-09 06:36] LABS: ABSOLUTE EOSINOPHILS # (AUTO) 0.1 10^3/uL (0.0-0.6); ABSOLUTE LYMPHOCYTES (AUTO) 2.1 10^3/uL (0.5-4.7); ABSOLUTE MONOCYTES (AUTO) 0.8 10^3/uL (0.1-1.4); ABSOLUTE NEUT (AUTO) 4.2 10^3/uL (1.7-8.2); BASOPHILS % (AUTO) 0.6 % (0-2); HEMATOCRIT 30.8 % (36.0-47.0); HEMOGLOBIN 11.2 g/dL (12.0-15.5); LYMPHOCYTES % (AUTO) 29.5 % (13-45); MEAN CORPUSCULAR HEMOGLOBIN 33.5 pg (27.0-33.4); MEAN CORPUSCULAR HGB CONC 36.2 g/dL (32.0-36.0); MEAN CORPUSCULAR VOLUME 92 fl (80-97); MONOCYTES % (AUTO) 10.5 % (3-13); PLATELET COUNT 124 10^3/uL (150-450); RED BLOOD COUNT 3.33 10^6/uL (3.72-5.28); RED CELL DISTRIBUTION WIDTH 12.7 % (11.5-14.0); SEGMENTED NEUTROPHILS % (AUTO) 58.4 % (42-78); TOTAL CELLS COUNTED % (AUTO) 100 %; WHITE BLOOD COUNT 7.2 10^3/uL (4.0-10.5)
[2019-03-09 06:56] LABS: ALANINE AMINOTRANSFERASE 48 U/L (9-52); ALBUMIN 3.5 g/dL (3.5-5.0); ALKALINE PHOSPHATASE 40 U/L (38-126); ANION GAP 8 (5-19); ASPARTATE AMINO TRANSFERASE 27 U/L (14-36); BILIRUBIN,DIRECT 0.1 mg/dL (0.0-0.4); BILIRUBIN,TOTAL 0.9 mg/dL (0.2-1.3); BLOOD UREA NITROGEN 6 mg/dL (7-20); CALCIUM 8.5 mg/dL (8.4-10.2); CARBON DIOXIDE 25 mmol/L (22-30); CHLORIDE 104 mmol/L (98-107); GLUCOSE 96 mg/dL (75-110); POTASSIUM 3.2 mmol/L (3.6-5.0); SODIUM 136.5 mmol/L (137-145)
[2019-03-09] MEDS: FAMOTIDINE INJ/PF 20 MG/2 ML SDV IV SCH ×2 (11:11→22:18)
[2019-03-09] MEDS: NORMAL SALINE 1000 ML 1,000 ML IV PRN ×2 (11:15→16:57)
[2019-03-09 18:33] LABS: POTASSIUM 3.2 mmol/L (3.6-5.0)
--- NOTE | 2019-03-09 19:09 | PDOC PROGRESS REPORT ---
Subjective Progress Note for:: 03/09/19 Subjective:: ALEXANDER HOWE is a 28 year old female with past medical history of depression, daily cannabis and occasional alcohol presents with 5 days of intractable nausea, vomiting and abdominal pain. She sought evaluation emergency room following a alcohol binge which revealed increased LFTs, leukocytosis and mild acidosis. She received IV fluids and symptomatic management but has returned a third time. Biochemically she shows improvement but with persistent LFT elevation and intractable nausea she receives 16 mg of Zofran then developed fever and is referred to the hospitalist for admission. Patient admits regular high intensity weight lifting, diet supplementation and rare alcohol binge. None since 03/04. She denies vomiting blood, chest pain or shortness of breath, she denies diarrhea. She denies previous episode. She denies relief of symptoms by showering. 03/10/2019. Nausea vomiting has been controlled with antiemetics however when her diet was advanced she could not tolerate and had one episode of vomiting. Patient was kept overnight for observation. Denies any fever shortness of breath, chills, abdominal pain, diarrhea, constipation or any urinary symptoms. Reason For Visit: INTRACTABLE NAUSEA AND VOMITING AND ABN LFT Physical Exam Vital Signs: Temp Pulse Resp BP Pulse Ox 98.2 F 67 16 140/97 H 100 03/09/19 15:39 03/09/19 15:39 03/09/19 15:39 03/09/19 15:39 03/09/19 15:39 Intake & Output 03/08/19 03/09/19 03/10/19 06:59 06:59 06:59 Intake Total 3390 Output Total 2500 Balance 890 Weight 48.5 kg General appearance: PRESENT: no acute distress, well-developed, well-nourished Head exam: PRESENT: atraumatic, normocephalic Eye exam: PRESENT: conjunctiva pink, EOMI, PERRLA. ABSENT: scleral icterus Ear exam: PRESENT: normal external ear exam Mouth exam: PRESENT: moist, tongue midline Neck exam: ABSENT: carotid bruit, JVD, lymphadenopathy, thyromegaly Respiratory exam: PRESENT: clear to auscultation priscila. ABSENT: rales, rhonchi, wheezes Cardiovascular exam: PRESENT: RRR. ABSENT: diastolic murmur, rubs, systolic murmur Pulses: PRESENT: normal dorsalis pedis pul Vascular exam: PRESENT: normal capillary refill GI/Abdominal exam: PRESENT: normal bowel sounds, soft. ABSENT: distended, guarding, mass, organolmegaly, rebound, tenderness Rectal exam: PRESENT: deferred Extremities exam: PRESENT: full ROM. ABSENT: calf tenderness, clubbing, pedal edema Neurological exam: PRESENT: alert, awake, oriented to person, oriented to place, oriented to time, oriented to situation, CN II-XII grossly intact. ABSENT: motor sensory deficit Psychiatric exam: PRESENT: appropriate affect, normal mood. ABSENT: homicidal ideation, suicidal ideation Skin exam: PRESENT: dry, intact, warm. ABSENT: cyanosis, rash Results Laboratory Results: 03/09/19 06:15 03/09/19 17:36 03/08/19 03/08/19 03/08/19 16:18 16:18 19:20 WBC RBC Hgb Hct MCV MCH MCHC RDW Plt Count Seg Neutrophils % Lymphocytes % Monocytes % Eosinophils % Basophils % Absolute Neutrophils Absolute Lymphocytes Absolute Monocytes Absolute Eosinophils Absolute Basophils Sodium Potassium Chloride Carbon Dioxide Anion Gap BUN Creatinine Est GFR ( Amer) Est GFR (Non-Af Amer) Glucose Lactic Acid 2.2 H Calcium Total Bilirubin AST ALT Alkaline Phosphatase Total Protein Albumin Lipase 97.9 Urine Color YELLOW Urine Appearance CLOUDY Urine pH 5.0 Ur Specific [place] 1.015 Urine Protein NEGATIVE Urine Glucose (UA) NEGATIVE Urine Ketones TRACE H Urine Blood SMALL H Urine Nitrite NEGATIVE Ur Leukocyte Esterase NEGATIVE Urine WBC (Auto) 1 Urine RBC (Auto) 0 03/09/19 03/09/19 03/09/19 06:15 06:15 17:36 WBC 7.2 RBC 3.33 L Hgb 11.2 L Hct 30.8 L MCV 92 MCH 33.5 H MCHC 36.2 H RDW 12.7 Plt Count 124 L Seg Neutrophils % 58.4 Lymphocytes % 29.5 Monocytes % 10.5 Eosinophils % 1.0 Basophils % 0.6 Absolute Neutrophils 4.2 Absolute Lymphocytes 2.1 Absolute Monocytes 0.8 Absolute Eosinophils 0.1 Absolute Basophils 0.0 Sodium 136.5 L Potassium 3.2 L 3.2 L Chloride 104 Carbon Dioxide 25 Anion Gap 8 BUN 6 L Creatinine 0.57 Est GFR ( Amer) > 60 Est GFR (Non-Af Amer) > 60 Glucose 96 Lactic Acid Calcium 8.5 Total Bilirubin 0.9 AST 27 ALT 48 Alkaline Phosphatase 40 Total Protein 6.0 L Albumin 3.5 Lipase Urine Color Urine Appearance Urine pH Ur Specific [place] Urine Protein Urine Glucose (UA) Urine Ketones Urine Blood Urine Nitrite Ur Leukocyte Esterase Urine WBC (Auto) Urine RBC (Auto) 03/09/19 03/09/19 06:15 17:36 Creatine Kinase 242 H 109 Impressions: Abdomen/Pelvis CT 03/08/19 20:03 IMPRESSION: Mild pelvic free fluid which may be due to ovarian pathology. Consider pelvic ultrasound for further evaluation, if clinically indicated. Transvaginal US 03/08/19 22:08 IMPRESSION: No acute sonographic abnormality. Small amount of free fluid in the pelvis, likely physiologic in a premenopausal female. copyright 2011 [employer]- All Rights Reserved Assessment and Plan - Diagnosis (1) Alcoholic gastritis Qualifiers: Chronicity: acute Is this a current diagnosis for this admission?: Yes Plan: Following alcohol binge, PPI and education. Nausea vomiting has improved patient is tolerating clear liquid diet. Could not be advanced to regular diet as patient had one emesis post regular diet. Continue PPIs, IV fluids, monitor for withdrawals, antiemetics. (2) Cannabinoid hyperemesis syndrome Is this a current diagnosis for this admission?: Yes Plan: Symptomatic management and education. (3) Elevated LFTs Is this a current diagnosis for this admission?: Yes Plan: Likely acute hepatitis versus muscle derived. LFTs WNL. Mild elevated CK 229 patient watches WNL today. Hepatitis panel negative. (4) Fever Is this a current diagnosis for this admission?: Yes Plan: Currently afebrile. Doubt infectious source, suspect high dose of Zofran. Blood culture negative x24 hours. PRN temperature greater than 100.2 (5) Nausea and vomiting Qualifiers: Vomiting type: unspecified Vomiting Intractability: unspecified Qualified Code(s): R11.2 - Nausea with vomiting, unspecified Is this a current diagnosis for this admission?: Yes Plan: Due to #1. Supportive measures. (6) Hypokalemia Is this a current diagnosis for this admission?: Yes Plan: Due to GI losses caused by nausea vomiting. Replace as needed. BMP tomorrow.
[2019-03-10] MEDS: HEPARIN SOD (PORCINE) 5,000 UNIT/ML 1 ML SYRINGE SUBCUT SCH (05:13)
[2019-03-10 08:37] LABS: HEPATITIS A AB IGM Negative (Negative); HEPATITIS B CORE AB IGM Negative (Negative); HEPATITS B SURFACE ANTIGEN Negative (Negative)
[2019-03-10 09:32] LABS: HEPATITIS C VIRUS ANTIBODY <0.1 s/co ratio (0.0-0.9)
[2019-03-10 09:34] LABS: ANION GAP 11 (5-19); BLOOD UREA NITROGEN 5 mg/dL (7-20); CALCIUM 9.2 mg/dL (8.4-10.2); CARBON DIOXIDE 26 mmol/L (22-30); CHLORIDE 101 mmol/L (98-107); GLUCOSE 128 mg/dL (75-110); POTASSIUM 3.3 mmol/L (3.6-5.0)
[2019-03-10] MEDS: FAMOTIDINE INJ/PF 20 MG/2 ML SDV IV SCH (11:03)
[2019-03-10] MEDS ORDERED: POTASSIUM CHLORIDE 10 MEQ CAPSULE.ER PO ONE (11:30)
[2019-03-10 14:54] VITALS: BP 140/97
--- NOTE | 2019-03-10 16:53 | PDOC DISCHARGE SUMMARY ---
General - Admit/Disc Date/PCP Admission Date/Primary Care Provider: 03/08/19 23:44 Discharge Date: 03/10/19 - Discharge Diagnosis (1) Alcoholic gastritis Is this a current diagnosis for this admission?: Yes (2) Cannabinoid hyperemesis syndrome Is this a current diagnosis for this admission?: Yes (3) Elevated LFTs Is this a current diagnosis for this admission?: Yes (4) Fever Is this a current diagnosis for this admission?: Yes (5) Nausea and vomiting Is this a current diagnosis for this admission?: Yes (6) Hypokalemia Is this a current diagnosis for this admission?: Yes - Additional Information Resuscitation Status: Full Code Discharge Diet: As Tolerated, Regular Prescriptions: Ondansetron HCl [Zofran] 8 mg PO Q8 4 Days #12 tablet Home Medications: Citalopram Hydrobromide [Celexa 10 mg Tablet] 5 mg PO DAILY 03/09/19 Ondansetron HCl [Zofran] 8 mg PO Q8 4 Days #12 tablet 03/10/19 History of Present Illness History of Present Illness: ALEXANDER HOWE is a 28 year old female with past medical history of depression, daily cannabis and occasional alcohol presents with 5 days of intractable nausea, vomiting and abdominal pain. She sought evaluation emergency room following a alcohol binge which revealed increased LFTs, leukocytosis and mild acidosis. She received IV fluids and symptomatic management but has returned a third time. Biochemically she shows improvement but with persistent LFT elevation and intractable nausea she receives 16 mg of Zofran then developed fever and is referred to the hospitalist for admission. Patient admits regular high intensity weight lifting, diet supplementation and rare alcohol binge. None since 03/04. She denies vomiting blood, chest pain or shortness of breath, she denies diarrhea. She denies previous episode. She denies relief of symptoms by showering. 03/10/2019. Nausea vomiting has been controlled with antiemetics however when her diet was advanced she could not tolerate and had one episode of vomiting. Patient was kept overnight for observation. Denies any fever shortness of breath, chills, abdominal pain, diarrhea, constipation or any urinary symptoms. Hospital Course Hospital Course: (1) Alcoholic gastritis Following alcohol binge, PPI and education. Nausea and vomiting resolved. Tolerating p.o. intake. Was discharged on PRN Zofran. (2) Cannabinoid hyperemesis syndrome Resolved. Symptomatic management and education. (3) Elevated LFTs Likely acute hepatitis versus muscle derived. LFTs WNL. Mild elevated CK 229 patient watches WNL today. Hepatitis panel negative. (4) Fever Afebrile. Doubt infectious source, suspect high dose of Zofran. Blood culture negative x24 hours. PRN temperature greater than 100.2 (5) Nausea and vomiting Due to #1. Supportive measures. (6) Hypokalemia Resolved. Was started on supplemental potassium. Magnesium level WNL. Due to GI losses caused by nausea vomiting. Physical Exam Vital Signs: Temp Pulse Resp BP Pulse Ox 97.8 F 69 16 140/97 H 97 03/10/19 14:53 03/10/19 14:53 03/10/19 14:53 03/10/19 14:53 03/10/19 14:53 Intake & Output 03/09/19 03/10/19 03/11/19 06:59 06:59 06:59 Intake Total 3990 Output Total 4000 Balance -10 Weight 48.5 kg 48.7 kg General appearance: PRESENT: no acute distress, well-developed, well-nourished Head exam: PRESENT: atraumatic, normocephalic Eye exam: PRESENT: conjunctiva pink, EOMI, PERRLA. ABSENT: scleral icterus Ear exam: PRESENT: normal external ear exam Mouth exam: PRESENT: moist, tongue midline Neck exam: ABSENT: carotid bruit, JVD, lymphadenopathy, thyromegaly Respiratory exam: PRESENT: clear to auscultation priscila. ABSENT: rales, rhonchi, wheezes Cardiovascular exam: PRESENT: RRR. ABSENT: diastolic murmur, rubs, systolic murmur Pulses: PRESENT: normal dorsalis pedis pul Vascular exam: PRESENT: normal capillary refill GI/Abdominal exam: PRESENT: normal bowel sounds, soft. ABSENT: distended, guarding, mass, organolmegaly, rebound, tenderness Rectal exam: PRESENT: deferred Extremities exam: PRESENT: full ROM. ABSENT: calf tenderness, clubbing, pedal edema Neurological exam: PRESENT: alert, awake, oriented to person, oriented to place, oriented to time, oriented to situation, CN II-XII grossly intact. ABSENT: motor sensory deficit Psychiatric exam: PRESENT: appropriate affect, normal mood. ABSENT: homicidal ideation, suicidal ideation Skin exam: PRESENT: dry, intact, warm. ABSENT: cyanosis, rash Results Laboratory Results: 03/09/19 06:15 03/10/19 13:54 03/09/19 03/09/19 03/10/19 17:36 17:36 08:50 Sodium 138.0 Potassium 3.2 L 3.3 L Chloride 101 Carbon Dioxide 26 Anion Gap 11 BUN 5 L Creatinine 0.57 Est GFR ( Amer) > 60 Est GFR (Non-Af Amer) > 60 Glucose 128 H Calcium 9.2 Magnesium 1.8 03/10/19 13:54 Sodium Potassium 3.6 Chloride Carbon Dioxide Anion Gap BUN Creatinine Est GFR ( Amer) Est GFR (Non-Af Amer) Glucose Calcium Magnesium 03/09/19 03/09/19 06:15 17:36 Creatine Kinase 242 H 109 Impressions: Abdomen/Pelvis CT 03/08/19 20:03 IMPRESSION: Mild pelvic free fluid which may be due to ovarian pathology. Consider pelvic ultrasound for further evaluation, if clinically indicated. Transvaginal US 03/08/19 22:08 IMPRESSION: No acute sonographic abnormality. Small amount of free fluid in the pelvis, likely physiologic in a premenopausal female. copyright 2010 [employer]- All Rights Reserved Qualifiers - * PATIENT BEING DISCHARGED WITH ANY OF THE FOLLOWING DIAGNOSIS: No Acute Heart Failure - Is this a Heart Failure Patient?: No LVEF < 40%?: No- if no continue to question #3
== END 2019-03-10 16:05 | disposition home or self-care (01) ==
LOC: ER 13:27 → OBSVTOIN 23:44 → INTOOBSV 23:44 → EH 23:44 → 2N 03-09 04:15
PROVIDERS: ADMIT Internal Medicine; ATTEND Internal Medicine
DX: K29.20 Alcoholic gastritis without bleeding (principal); F12.988 Cannabis use, unspecified with other cannabis-induced disorder; R11.2 Nausea with vomiting, unspecified; E87.6 Hypokalemia; R50.9 Fever, unspecified; R94.5 Abnormal results of liver function studies; F32.9 Major depressive disorder, single episode, unspecified; Z79.899 Other long term (current) drug therapy; F17.200 Nicotine dependence, unspecified, uncomplicated
CPT/HCPCS: 36415; 74177; 76830; 80048; 80053; 80074; 81001; 81025; 82550; 83605; 83690; 83735; 84132; 85025; 87040; 87210; 87491; 87591; 93005; 93010; 96374; 96375; 96376; 99285; G0378; J1200; J1630; J2060; J2270; J2405; J2765; J7030; S0028

== ENCOUNTER 2019-04-09 20:51 | Emergency (ER) | payer SELFPAY ==
[2019-04-09] MEDS ORDERED: NORMAL SALINE 1000 ML 1,000 ML IV ONE (21:39)
[2019-04-09] MEDS ORDERED: ONDANSETRON HCL INJ/PF 4 MG/2 ML SDV IV ONE (21:39)
[2019-04-09] MEDS ORDERED: FAMOTIDINE INJ/PF 20 MG/2 ML SDV IV ONE (21:39)
--- NOTE | 2019-04-09 21:44 | ER Document Report ---
ED Medical Screen (RME) - General Chief Complaint: Alcohol Withdrawl Stated Complaint: DETOX Time Seen by Provider: 04/09/19 21:35 Notes: Patient is a 28-year-old female who presents to the emergency department with a chief complaint of nausea, vomiting and diarrhea. Patient states she did drink 1.5 bottles of wine today. Patient states she does have a history of alcohol abuse and has been to rehab for this. Patient states she had been sober for 60 days. Patient states she drink today because her boyfriend broke up with her. Patient does have a history of anxiety and depression. Patient denies SI. Patient reports significant acid reflux. Patient denies abdominal pain. Patient denies vaginal bleeding or discharge. Patient states she is vomited about 10 times in the past 4 hours. Patient reports a decreased appetite throughout the day. Patient denies urinary symptoms. TRAVEL OUTSIDE OF THE [place] IN LAST 30 DAYS: No - Related Data Allergies/Adverse Reactions: No Known Allergies Allergy (Verified 04/09/19 20:54) Past Medical History Renal/ Medical History: Denies: Hx Peritoneal Dialysis Psychiatric Medical History: Reports: Hx Depression Past Surgical History: Reports: Hx Appendectomy Physical Exam - Vital signs Vitals: Temp Pulse Resp BP Pulse Ox 98.0 F 142 H 23 H 134/102 H 96 04/09/19 20:56 04/09/19 20:56 04/09/19 20:56 04/09/19 20:56 04/09/19 20:56 - Abdominal Inspection: Normal Distension: No distension Bowel sounds: Normal Tenderness: Nontender Organomegaly: No organomegaly Course - Re-evaluation Re-evalutation: 04/09/19 21:43 Patient actively vomiting in triage. I have placed the appropriate orders. She is tachycardic with a heart rate of 142. IV hydration and antinausea medicine ordered. I have greeted and performed a rapid initial assessment of this patient. A comprehensive ED assessment and evaluation of the patient, analysis of test results and completion of the medical decision making process will be conducted by additional ED providers. 04/09/19 21:43 - Vital Signs Vital signs: Temp Pulse Resp BP Pulse Ox 98.0 F 142 H 23 H 134/102 H 96 04/09/19 20:56 04/09/19 20:56 04/09/19 20:56 04/09/19 20:56 04/09/19 20:56
[2019-04-09 22:37] LABS: ABSOLUTE BASOPHILS # (AUTO) 0.1 10^3/uL (0.0-0.2); ABSOLUTE LYMPHOCYTES (AUTO) 2.3 10^3/uL (0.5-4.7); ABSOLUTE MONOCYTES (AUTO) 0.3 10^3/uL (0.1-1.4); ABSOLUTE NEUT (AUTO) 3.9 10^3/uL (1.7-8.2); BASOPHILS % (AUTO) 1.4 % (0-2); EOSINOPHILS % (AUTO) 0.2 % (0-6); HEMATOCRIT 43.4 % (36.0-47.0); HEMOGLOBIN 15.1 g/dL (12.0-15.5); LYMPHOCYTES % (AUTO) 34.6 % (13-45); MEAN CORPUSCULAR HEMOGLOBIN 32.4 pg (27.0-33.4); MEAN CORPUSCULAR HGB CONC 34.8 g/dL (32.0-36.0); MEAN CORPUSCULAR VOLUME 93 fl (80-97); MONOCYTES % (AUTO) 4.9 % (3-13); PLATELET COUNT 323 10^3/uL (150-450); RED BLOOD COUNT 4.66 10^6/uL (3.72-5.28); RED CELL DISTRIBUTION WIDTH 12.5 % (11.5-14.0); SEGMENTED NEUTROPHILS % (AUTO) 58.9 % (42-78); TOTAL CELLS COUNTED % (AUTO) 100 %; WHITE BLOOD COUNT 6.7 10^3/uL (4.0-10.5)
[2019-04-09 22:43] LABS: ALANINE AMINOTRANSFERASE 35 U/L (9-52); ALBUMIN 5.3 g/dL (3.5-5.0); ALKALINE PHOSPHATASE 90 U/L (38-126); ASPARTATE AMINO TRANSFERASE 36 U/L (14-36); BILIRUBIN,DIRECT 0.2 mg/dL (0.0-0.4); BILIRUBIN,TOTAL 0.6 mg/dL (0.2-1.3); BLOOD UREA NITROGEN 7 mg/dL (7-20); CALCIUM 9.9 mg/dL (8.4-10.2); GLUCOSE 91 mg/dL (75-110); POTASSIUM 4.2 mmol/L (3.6-5.0); TOTAL PROTEIN 8.6 g/dL (6.3-8.2)
--- NOTE | 2019-04-09 22:45 | ER Document Report ---
Addendum entered and electronically signed by MICKEY DA SILVA LPC 04/10/19 09:43: Discharge - Discharge Clinical Impression: Alcohol abuse Vomiting Qualifiers: Vomiting type: unspecified Vomiting Intractability: non-intractable Nausea presence: with nausea Qualified Code(s): R11.2 - Nausea with vomiting, unspecified Alcohol intoxication Qualifiers: Complication of substance-induced condition: with unspecified complication Qualified Code(s): F10.929 - Alcohol use, unspecified with intoxication, u nspecified Condition: Stable Disposition: HOME, SELF-CARE Additional Instructions: You have been evaluated by both medical and behavioral health providers while in the emergency department. You have been cleared from both acute medical and psychiatric services. You have requested alcohol detoxification and this is the recommended treatment option. You are being linked to [facility] for this voluntary placement. CHRONIC ALCOHOLISM and ALCOHOL ABUSE: Your evaluation reveals evidence of chronic alcoholism, an addiction to alcohol. The tendency to alcoholism may be inherited. Chronic use of alcohol weakens muscles, causes fatty deposits in the liver, damages the stomach, makes you more prone to infections, and can cause defects in unborn children. In the long run, brain atrophy and cirrhosis of the liver result. You are also at greater risk for certain types of cancer, such as cancer of the mouth, throat, stomach, and liver. Counselling services are available to help you. In-hospital treatment programs often help. Support groups such as Alcoholics Anonymous can be very useful in beating this addiction. Your physician can make a referral for you. As alcoholics often are prone to other addictions, you should discuss your use of any other medications with the doctor. ALCOHOL WITHDRAWAL: (you noted sweating, some shakiness that has gotten better, and came in with complaints of nausea/vomiting/diarrhea) Your symptoms are caused by alcohol withdrawal. After a period of frequent drinking, the brain and body are changed by the alcohol. When you quit or reduce your drinking, the nervous system becomes unstable. Withdrawal symptoms can start a few hours after your last drink, but sometimes don't begin until a c ouple of days later. Symptoms can include shakiness, sweating, insomnia, nausea, vomiting, fearfulness, hallucinations, and seizures. In addition to the acute effects of alcohol withdrawal, we often have to deal with the medical effects of alcoholism. These problems often include dehydration, stomach irritation, intestinal bleeding, low blood sugar, liver disease, and pancreas inflammation. Treatment for alcohol withdrawal includes mild sedatives, vitamins, and fluids. You need to be with someone who can help if symptoms become severe. Many patients can withdraw at home. Admission to the hospital or a detox facility may be necessary if withdrawal symptoms are severe and uncontrollable. Abstaining from alcohol is the only effective long-term treatment. If you start drinking again, you will not be able to control yourself after the first drink. Treatment programs are available. In addition, many alcoholics benefit from Alcoholics Anonymous or other support groups available through your counselor or [employer]. AL-ANON and ALA-TEEN are support groups for friends and family members of an alcoholic. Go to the emergency room if you develop persistent vomiting, severe abdominal pain, fever, shortness of breath, hallucinations, uncontrollable tremors, or seizures. FOLLOW-UP CARE: You are being linked directly to [facility] for voluntary alcohol detoxification/treatment. They will meet you in the emergency department lobby at discharge. If you experience worsening or a significant change in your symptoms, notify the physician immediately, utilize or return to the Emergency Department at any time for re-evaluation. Referrals: [facility] [Outside] - 04/10/19 [facility] [Outside] - Follow up as needed Original Note: ED General - General TRAVEL OUTSIDE OF THE [place] IN LAST 30 DAYS: No <SHANNON LUQUE - Last Filed: 04/10/19 05:31> <MICKEY DA SILVA - Last Filed: 04/10/19 09:38> <AMA BONILLA - Last Filed: 04/10/19 10:04> - General Chief Complaint: Alcohol Withdrawl Stated Complaint: DETOX Time Seen by Provider: 04/09/19 21:35 Primary Care Provider: [facility] [Outside] - 04/10/19 [facility] [Outside] - Follow up as needed Notes: Patient is a 28-year-old female that comes to the emergency department for chief complaint of vomiting, alcohol abuse, and wanting detox. She states that she broke up with her boyfriend, started drinking yesterday, drink all day today, started vomiting and could not stop. She denies hematemesis, she reports generalized mid to upper abdominal pain. She denies any other symptoms except for feeling her heart racing. She states that she has gone through detox from alcoholism in the past. She has a history of anxiety/depression, on citalopram, states she is compliant with this medication. She denies suicidal or homicidal ideations, however she states that she is scared of "what might happen if I keep drinking at home". She states she has attempted suicide in the past. She smokes marijuana, denies medical history otherwise. (SHANNON LUQUE) - Related Data Allergies/Adverse Reactions: No Known Allergies Allergy (Verified 04/09/19 20:54) Past Medical History - General Information source: Patient - Social History Smoking Status: Never Smoker Frequency of alcohol use: Heavy Drug Abuse: Marijuana Lives with: Alone Family History: Other - Unknown, patient is adopted Patient has suicidal ideation: No Patient has homicidal ideation: No Renal/ Medical History: Denies: Hx Peritoneal Dialysis Psychiatric Medical History: Reports: Hx Depression Past Surgical History: Reports: Hx Appendectomy - Immunizations Immunizations up to date: Yes Hx Diphtheria, Pertussis, Tetanus Vaccination: Yes <SHANNON LUQUE - Last Filed: 04/10/19 05:31> Review of Systems - Review of Systems Constitutional: No symptoms reported EENT: No symptoms reported Cardiovascular: No symptoms reported Respiratory: No symptoms reported Gastrointestinal: No symptoms reported Genitourinary: No symptoms reported Female Genitourinary: No symptoms reported Musculoskeletal: No symptoms reported Skin: No symptoms reported Hematologic/Lymphatic: No symptoms reported Neurological/Psychological: No symptoms reported <SHANNON LUQUE - Last Filed: 04/10/19 05:31> Physical Exam <SHANNON LUQUE - Last Filed: 04/10/19 05:31> - Vital signs Vitals: Temp Pulse Resp BP Pulse Ox 98.0 F 142 H 23 H 134/102 H 96 04/09/19 20:56 04/09/19 20:56 04/09/19 20:56 04/09/19 20:56 04/09/19 20:56 - Notes Notes: GENERAL: Ambulates well, alert, interactive, however occasionally slurring words HEAD: Normocephalic, atraumatic. EYES: Pupils equal, round, and reactive to light. Extraocular movements intact. ENT: Oral mucosa moist, tongue midline. Oropharynx unremarkable. Airway patent. LUNGS: Clear to auscultation bilaterally, no wheezes, rales, or rhonchi. No respiratory distress. HEART: Regular rate and rhythm. No murmur ABDOMEN: Soft, non-tender. Non-distended. Bowel sounds present in all 4 quadrants. GENITOURINARY: Deferred EXTREMITIES: Moves all 4 extremities spontaneously. No edema, normal radial and dorsalis pedis pulses bilaterally. No cyanosis. BACK: no cervical, thoracic, lumbar midline tenderness. No saddle anesthesia, normal distal neurovascular exam. Moves all extremities in full range of motion. NEUROLOGICAL: Alert and oriented x3. Slightly slurred speech. Cranial nerves II through XII grossly intact. PSYCH: Interrupting during conversation persistently, however otherwise calm and cooperative SKIN: Warm, dry, normal turgor. No rashes or lesions noted. (SHANNON LUQUE) Course - Laboratory Result Diagrams: 04/09/19 22:12 04/09/19 22:12 <SHANNON LUQUE - Last Filed: 04/10/19 05:31> - Laboratory Result Diagrams: 04/09/19 22:12 04/09/19 22:12 <AMA BONILLA - Last Filed: 04/10/19 10:04> - Re-evaluation Re-evalutation: Patient ambulates with a steady gait, occasionally slurs her words, close to being clinically sober. No neurological deficits. She is actually quite well- appearing. Her abdomen is soft and benign but she did throw up after I evaluated her. She was given Phenergan, Carafate, Pepcid. She was given IV fluids. Initially patient was significantly tachycardic, however after medications and fluids this resolved. Heart rate is now in the 90s. CBC, chemistry, urinalysis unremarkable. test is negative. Alcohol is elevated at 286. Marijuana positive, drug screen otherwise unremarkable. I did discuss at length with the patient. She states that she is not suicidal, she is not homicidal, she states that if she went home she would not kill herself, however she states that she is afraid to go home because if she does so she will start binge drinking and then "going into a spiral and who knows what then". She states she wants to stay to start sobering up and speak to mental health. She states she wants to talk to her options. She states she has had withdrawal symptoms including shaking, nausea, trouble focusing, however she denies history of delirium tremens or seizures. Patient is sleeping peacefully now. She is medically cleared pending mental health team evaluation. (SHANNON LUQUE) - Vital Signs Vital signs: Temp Pulse Resp BP Pulse Ox 98.2 F 73 18 133/82 H 99 04/10/19 06:34 04/10/19 06:34 04/10/19 06:34 04/10/19 06:34 04/10/19 06:34 - Laboratory Laboratory results interpreted by me: 04/09/19 04/09/19 04/09/19 22:12 22:12 23:13 Chloride 96 L Anion Gap 23 H Total Protein 8.6 H Albumin 5.3 H Urine Ketones TRACE H Salicylates < 1.0 L Acetaminophen < 10 L Discharge <SHANNON LUQUE - Last Filed: 04/10/19 05:31> <MICKEY DA SILVA - Last Filed: 04/10/19 09:38> <AMA BONILLA - Last Filed: 04/10/19 10:04> - Discharge Clinical Impression: Alcohol abuse Vomiting Qualifiers: Vomiting type: unspecified Vomiting Intractability: non-intractable Nausea presence: with nausea Qualified Code(s): R11.2 - Nausea with vomiting, unspec ified Alcohol intoxication Qualifiers: Complication of substance-induced condition: with unspecified complication Qualified Code(s): F10.929 - Alcohol use, unspecified with intoxication, unspecified Condition: Stable Disposition: HOME, SELF-CARE Additional Instructions: You have been evaluated by both medical and behavioral health providers while in the emergency department. You have been cleared from both acute medical and psychiatric services. You have requested alcohol detoxification and this is the recommended treatment option. You are being linked to [facility] for this voluntary placement. CHRONIC ALCOHOLISM and ALCOHOL ABUSE: Your evaluation reveals evidence of chronic alcoholism, an addiction to alcohol. The tendency to alcoholism may be inherited. Chronic use of alcohol weakens muscles, causes fatty deposits in the liver, damages the stomach, makes you more prone to infections, and can cause defects in unborn children. In the long run, brain atrophy and cirrhosis of the liver result. You are also at greater risk for certain types of cancer, such as cancer of the mouth, throat, stomach, and liver. Counselling services are available to help you. In-hospital treatment programs often help. Support groups such as Alcoholics Anonymous can be very useful in beating this addiction. Your physician can make a referral for you. As alcoholics often are prone to other addictions, you should discuss your use of any other medications with the doctor. ALCOHOL WITHDRAWAL: (you noted sweating, some shakiness that has gotten better, and came in with complaints of nausea/vomiting/diarrhea) Your symptoms are caused by alcohol withdrawal. After a period of frequent drinking, the brain and body are changed by the alcohol. When you quit or reduce your drinking, the nervous system becomes unstable. Withdrawal symptoms can start a few hours after your last drink, but sometimes don't begin until a couple of days later. Symptoms can include shakiness, sweating, insomnia, nausea, vomiting, fearfulness, hallucinations, and seizures. In addition to the acute effects of alcohol withdrawal, we often have to deal with the medical effects of alcoholism. These problems often include dehydration, stomach irritation, intestinal bleeding, low blood sugar, liver disease, and pancreas inflammation. Treatment for alcohol withdrawal includes mild sedatives, vitamins, and fluids. You need to be with someone who can help if symptoms become severe. Many patients can withdraw at home. Admission to the hospital or a detox facility m ay be necessary if withdrawal symptoms are severe and uncontrollable. Abstaining from alcohol is the only effective long-term treatment. If you start drinking again, you will not be able to control yourself after the first drink. Treatment programs are available. In addition, many alcoholics benefit from Alcoholics Anonymous or other support groups available through your counselor or [employer]. AL-ANON and ALA-TEEN are support groups for friends and family members of an alcoholic. Go to the emergency room if you develop persistent vomiting, severe abdominal pain, fever, shortness of breath, hallucinations, uncontrollable tremors, or seizures. FOLLOW-UP CARE: You are being linked directly to [facility] for voluntary alcohol detoxification/treatment. They will meet you in the emergency department lobby at discharge. If you experience worsening or a significant change in your symptoms, notify the physician immediately, utilize or return to the Emergency Department at any time for re-evaluation. Referrals: [facility] [Outside] - 04/10/19 [facility] [Outside] - Follow up as needed
[2019-04-09 22:49] LABS: CARBON DIOXIDE 22 mmol/L (22-30); CHLORIDE 96 mmol/L (98-107); SODIUM 141.4 mmol/L (137-145)
[2019-04-09 22:50] LABS: ANION GAP 23 (5-19)
[2019-04-09] MEDS ORDERED: FAMOTIDINE 20 MG TABLET PO ONE (23:08)
[2019-04-09] MEDS ORDERED: SUCRALFATE 1 GM TABLET PO ONE (23:08)
[2019-04-09 23:35] LABS: ACETAMINOPHEN < 10 ug/mL (10-30); ALCOHOL 286 mg/dL (NONE DETECTED); SALICYLATE < 1.0 mg/dL (2.0-20.0)
[2019-04-09 23:51] LABS: APPEARANCE,URINE CLEAR; BILIRUBIN,URINE NEGATIVE (NEGATIVE); COLOR,URINE STRAW; GLUCOSE, URINE NEGATIVE (NEGATIVE); KETONES,URINE TRACE mg/dL (NEGATIVE); LEUKOCYTE ESTERASE,URINE NEGATIVE (NEGATIVE); NITRITE,URINE NEGATIVE (NEGATIVE); PROTEIN,URINE NEGATIVE (NEGATIVE); URINE SPECIFIC GRAVITY 1.006; UROBILINOGEN,URINE NEGATIVE mg/dL (<2.0)
[2019-04-10 00:12] LABS: URINE AMPHETAMINES SCREEN NEGATIVE; URINE BARBITURATES SCREEN NEGATIVE; URINE BENZODIAZEPINES SCREEN NEGATIVE; URINE COCAINE SCREEN NEGATIVE; URINE METHADONE SCREEN NEGATIVE; URINE PHENCYCLIDINE SCREEN NEGATIVE
[2019-04-10 00:15] LABS: URINE MARIJUANA (THC) SCREEN UNCONFIRMED POSITIVE
[2019-04-10] MEDS ORDERED: PROMETHAZINE HCL INJ 25 MG/1 ML VIAL IM ONE (01:11)
--- NOTE | 2019-04-10 06:31 | EKG REPORT ---
SEVERITY:- BORDERLINE ECG - SINUS TACHYCARDIA INFERIOR Q WAVES, PROBABLY NORMAL VARIATION NONSPECIFIC ST-T CHANGES INFERIOR LEADS : Confirmed by: Mihir Chowdary MD 10-Apr-2019 06:30:38
[2019-04-10] MEDS ORDERED: ONDANSETRON 4 MG TAB.RAPDIS PO ONE (08:40)
[2019-04-10] MEDS ORDERED: LORAZEPAM INJ 2 MG/1 ML VIAL IV ONE (10:34)
[2019-04-10 12:24] VITALS: BP 116/68
--- NOTE | 2019-04-10 17:20 | PSYCHOLOGICAL NOTE ---
Psych Note - Psych Note Date seen by psych provider: 04/10/19 Time seen by psych provider: 07:27 - Chart review at 0727. Evaluation from 0832- 0838. Psych Note: Presenting Problem: Alcohol Use, intoxication, withdrawal, patient requesting detox, concerns if didn't get help since in the past while drinking held a gun to herself. Serum Alcohol Level was 286 and UDS positive for Cannabis. Medical documentation noted she presented tearful, with tremors, and noted nausea/ vomiting/diarrhea. She identified she drank 1.5 bottles of wine yesterday, relapsed 4-5 days ago, and has been drinking wine every day since. She noted "I can't handle liquor." She reported the following withdrawal symptoms: sweats, shaky/shivering but slowly going away. Observed unable to sit still and tremulousness, especially when sitting upright. She denied any kind of seizure Hx. She denied current SI, admitted to previous when held gun to herself at age 25 or 27 and denied current access to firearms. She noted a Hx of depression and anxiety. She denied previous hospitalizations. She had been administered fluids (NaCl), Zofran and a one time dose of Ativan. She continued to want detox and agreed to direct linkage to [facility] for voluntary detox placement. Patient was alert and oriented x5, had linear thinking, was able to answer questions/interact appropriately, could carry on dialogue conversation and was able to express self/wants/needs. 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 She was concerned about work at 1800 (future/forward/goal oriented thinking). Patient seen at [facility] ED 4 times this year for what seems like alcohol related issues (detox, vomiting, dehydration, intractable nausea/vomiting/ABN LFTs. Diagnosis: Polysubstance Use 303.90 (F10.20) Alcohol Use Disorder, Severe 304.20 (F12.20) Cannabis Use Disorder, Severe 311 (F32.9) Unspecified Depressive Disorder by Hx per patient 300.00 (F41.9) Unspecified Anxiety Disorder by Hx per patient Impression/Plan: Patient is cleared from acute psychiatric services. She denied SI/HI and no observed psychosis that interfered with ability to appropriate interact with others and express self/wants/needs. She was oriented x5 with linear thinking, had concern about work (future/forward/goal oriented thinking) and was interested in detox. Directly linked patient to [facility], and Stephanie came to the ED for assessment at discharge. Patient provided with outpatient SA resource sheet which highlighted [facility], documented they would assist with voluntary detox, listed the 4 [facility] funded/Medicaid detox facilities and listed [facility] for outpatient dual diagnosis treatment. Consulted with Dr. Hood regarding the management and care of patient. ED Physician in agreement with recommendations.
== END 2019-04-10 12:25 | disposition home or self-care (01) ==
LOC: ER 20:51
DX: R11.2 Nausea with vomiting, unspecified (principal); F10.929 Alcohol use, unspecified with intoxication, unspecified; R10.84 Generalized abdominal pain
CPT/HCPCS: 93005; 99285; 96361; 96374; 96375; 36415; 80307 ×4; 83690; 85025; 81025; 80053; 81001; 93010; S0119; J2060; J2550; J2405; J7030; S0028

== ENCOUNTER 2019-05-02 12:31 | Emergency (ER) | payer SELFPAY ==
[2019-05-02] MEDS ORDERED: ONDANSETRON HCL INJ/PF 4 MG/2 ML SDV IV ONE (13:04)
[2019-05-02] MEDS ORDERED: NORMAL SALINE 1000 ML 1,000 ML IV PRN ×2 (13:04→17:15)
[2019-05-02] MEDS ORDERED: FAMOTIDINE INJ/PF 20 MG/2 ML SDV IV ONE (13:04)
--- NOTE | 2019-05-02 13:05 | ER Document Report ---
ED Medical Screen (RME) - General Chief Complaint: Vomiting Stated Complaint: VOMITING Time Seen by Provider: 05/02/19 12:59 Notes: HPI: 28-year-old female with a history of depression here for several episodes of nonbloody nonbilious emesis and epigastric abdominal pain since this morning. She states this has happened before in the past when she drank too much alcohol. She did binge drink last night. She and her significant other had moy ral rounds of vodka. States usually she does not drink to that extent. She also uses THC but denies cannabis hyperemesis. No abdominal surgeries other than a remote appendectomy. No history of ovarian cysts, fibroids, endometriosis, or renal stones. Normal bowel movements. No UTI symptoms. No URI symptoms. No recent antibiotics or steroids. No history of diabetes or asthma. No vaginal discharge/complaints/lesions or concerns for STDs and does not want a pelvic exam. No ripping or tearing sensation. Hasn't taken anything for her symptoms. No excessive NSAID use or Tylenol use. No prior history of gallbladder disease, pancreatitis, ulcers, GI bleed, GERD, IBS, Crohn's, or UC. no change in color or caliber or stool. no blood thinners. no fall or trauma. no other associated sx. ROS neg to include 10 systems, unless mentioned in the hpi. PE:>>>> PHYSICAL_EXAM: GENERAL_APPEARANCE: well_nourished, alert, cooperative, no_acute_distress, mild obvious_discomfort. pleasant, thin young white female, sticking her fingers down her throat to try to make herself vomit repetitively and dry heaving, speaking in full sentences, in no sign of pain or resp distress, significant other at VITALS: reviewed, see vital signs table. HEAD: no_swelling\tenderness on the head. normocephalic. atraumatic. no cardenas signs. no raccoons eyes. EARS: canals_clear_bilat, TMs_clear. EYES: PERRL, EOMI, conjunctiva_clear. NOSE: no_nasal_discharge. MOUTH: (-)decreased moisture. THROAT: no_tonsilar_inflammation, no_airway_obstruction. no_lymphadenopathy NECK: supple, no_neck_tenderness, full rom. full strength. BACK: no_back_tenderness. CHEST_WALL: no_chest_tenderness. no overlying skin changes LUNGS: no_wheezing, ctab (-)accessory muscle use, good air exchange bilater al. HEART: normal_rate, normal_rhythm, ABDOMEN: normal_BS, soft, mildly ttp in the epigastrium, (-)guarding, (- )rebound, no distension or peritoneal signs. no cva ttp EXTREMITIES: strength 5/5 in all_extremities, good pulses in all_extremities, no_swelling\tenderness in the extremities, no_edema. full rom. normal gait. good pulses. brisk cap refill. good hand heel layer. NEURO: motor and sensation intact, SKIN: warm, dry, good_color, no_rash. MENTAL_STATUS: speech_clear, oriented_X_3, normal_affect, responds_appropriately to questions. MDM: I have ordered labs and initial work-up and patient will be transferred to the main ER for further work-up. I have greeted and performed a rapid initial assessment of this patient. A comprehensive ED assessment and evaluation of the patient, analysis of test results and completion of medical decision making process will be conducted by an additional ED providers. Documentation achieved through voice recording which my lead to some occasional accidental typographical errors. Extensive efforts have been made to proof read documentation to make sure these are the least as possible Temp Pulse Resp BP Pulse Ox 05/02/19 12:41 98.1 F 84 17 147/82 H 96 Category Date Time Status CBC WITH DIFF [HEME] Stat Lab 05/02/19 13:02 Ordered COMPREHENSIVE METABOLIC PANEL [CHEM] Stat Lab 05/02/19 13:02 Ordered ETOH [ALCOHOL] [CHEM] Stat Lab 05/02/19 13:04 Ordered HCG QUALITATIVE, URINE [URIN] Stat Lab 05/02/19 13:02 Uncollected LIPASE [CHEM] Stat Lab 05/02/19 13:03 Ordered URINALYSIS [URIN] Stat Lab 05/02/19 13:03 Uncollected URINE DRUG SCREEN [CHEM] Stat Lab 05/02/19 13:05 Uncollected Famotidine/Pf [Pepcid Inj/Pf 20 mg/2 ml Sdv] Med 05/02/19 13:04 Once 20 mg IV NOW ONE Normal Saline 1000 ml [NaCl 0.9% 1000 ml IV Soln] 1,000 Med 05/02/19 13:04 Ordered ml IV X 2 BAGS Ondansetron HCl/Pf [Zofran Inj/Pf 4 mg/2 ml Sdv] Med 05/02/19 13:04 Once 4 mg IV NOW ONE TRAVEL OUTSIDE OF THE [place] IN LAST 30 DAYS: No - Related Data Allergies/Adverse Reactions: No Known Allergies Allergy (Verified 05/02/19 12:32) Past Medical History Renal/ Medical History: Denies: Hx Peritoneal Dialysis Psychiatric Medical History: Reports: Hx Depression Past Surgical History: Reports: Hx Appendectomy - Immunizations Immunizations up to date: Yes Hx Diphtheria, Pertussis, Tetanus Vaccination: Yes Physical Exam - Vital signs Vitals: Temp Pulse Resp BP Pulse Ox 98.1 F 84 17 147/82 H 96 05/02/19 12:41 05/02/19 12:41 05/02/19 12:41 05/02/19 12:41 05/02/19 12:41 Course - Vital Signs Vital signs: Temp Pulse Resp BP Pulse Ox 98.1 F 84 17 147/82 H 96 05/02/19 12:41 05/02/19 12:41 05/02/19 12:41 05/02/19 12:41 05/02/19 12:41
--- NOTE | 2019-05-02 13:26 | ER Document Report ---
ED General <MICKEY DA SILVA - Last Filed: 05/02/19 17:23> - General Mode of Arrival: Ambulatory Information source: Patient TRAVEL OUTSIDE OF THE [place] IN LAST 30 DAYS: No <STANLEY MALONE Jose Alberto - Last Filed: 05/02/19 18:27> - General Chief Complaint: Vomiting Stated Complaint: VOMITING Time Seen by Provider: 05/02/19 12:59 Primary Care Provider: [facility] [Outside] - Follow up as needed [facility] [Outside] - Follow up as needed - HPI Notes: 28-year-old female presents the ED for evaluation of dry heaves and abdominal pain since this morning at 0400. Patient does admit to drinking alcohol last night has drinking vodka and cranberry. Patient does have a history of alcoholism and binge drinking. Has been evaluated in this ED before for nausea related to alcohol use. Patient denies any illicit drug use. Friend is at bedside who states that patient has been vomiting this morning. Patient does appear to be altered. denies fevers, chills, chest pain,palpitations, shortness of breath, dyspnea, diarrhea, hematuria,blurred vision, double vision, loss of vision, speech changes, LH, dizziness, syncope, headaches, wheezing, ST, URI, neck pain, weakness, bowel or bladder dysfunction, saddle anesthesia, numbness or tingling in bilateral upper or lower extremities equally, muscle paralysis, weakness in bilateral upper or lower extremities equally or rash. (STANLEY MALONE) - Related Data Allergies/Adverse Reactions: egg Allergy (Verified 05/02/19 15:57) Past Medical History - General Information source: Patient, Friend - Social History Smoking Status: Never Smoker Chew tobacco use (# tins/day): No Frequency of alcohol use: Social Drug Abuse: Marijuana Family History: Other - Unknown, patient is adopted Patient has suicidal ideation: No Patient has homicidal ideation: No Renal/ Medical History: Denies: Hx Peritoneal Dialysis Psychiatric Medical History: Reports: Hx Depression Past Surgical History: Reports: Hx Appendectomy - Immunizations Immunizations up to date: Yes Hx Diphtheria, Pertussis, Tetanus Vaccination: Yes <KIRAAUGUSTO BENDERPUNEET Abrams - Last Filed: 05/02/19 18:27> Review of Systems - Review of Systems Constitutional: No symptoms reported EENT: No symptoms reported Cardiovascular: No symptoms reported Respiratory: No symptoms reported Gastrointestinal: See HPI Genitourinary: No symptoms reported Female Genitourinary: No symptoms reported Musculoskeletal: No symptoms reported Skin: No symptoms reported Hematologic/Lymphatic: No symptoms reported Neurological/Psychological: No symptoms reported <STANLEY MALONE - Last Filed: 05/02/19 18:27> Physical Exam <STANLEY MALONE - Last Filed: 05/02/19 18:27> - Vital signs Vitals: Temp Pulse Resp BP Pulse Ox 98.1 F 84 17 147/82 H 96 05/02/19 12:41 05/02/19 12:41 05/02/19 12:41 05/02/19 12:41 05/02/19 12:41 - Notes Notes: PHYSICAL EXAMINATION: GENERAL: Well-appearing, well-nourished and in no mild distress I do not have a HEAD: Atraumatic, normocephalic. EYES: Pupils equal round and reactive to light, extraocular movements intact, conjunctiva are normal. ENT: Nares patent, oropharynx clear without exudates. Moist mucous membranes. NECK: Normal range of motion, supple without lymphadenopathy LUNGS: Breath sounds clear to auscultation bilaterally and equal. No wheezes rales or rhonchi. HEART: Regular rate and rhythm without murmurs ABDOMEN: Soft, generalized tendernessnondistended abdomen. No guarding, no rebound. No masses appreciated. No CVA tenderness bilaterally appreciated Female : deferred Musculoskeletal: Normal range of motion, no pitting or edema. No cyanosis. NEUROLOGICAL: Cranial nerves grossly intact. Normal speech, normal gait. Normal sensory, motor exams PSYCH: Normal mood, normal affect. SKIN: Warm, Dry, normal turgor, no rashes or lesions noted. (STANLEY MALONE) Course - Laboratory Result Diagrams: 05/02/19 13:42 05/02/19 13:42 <MICKEY DA SILVA - Last Filed: 05/02/19 17:23> - Laboratory Result Diagrams: 05/02/19 13:42 05/02/19 13:42 - EKG Interpretation by [place] EKG shows normal: Sinus rhythm Rate: Normal When compared to previous EKG there are: No significant change - Non-STEMI, no st seg changes <STANLEY MALONE - Last Filed: 05/02/19 18:27> - Re-evaluation Re-evalutation: 28-year-old female presents the ED for evaluation of nausea vomiting after alcohol use last night. Patient's serum alcohol is 176, CBC negative for leukocytosis or anemia, CMP negative for hepatic or renal dysfunction, patient was initially acting altered when his provider entered the room with stuttering her words, and gagging. CT of head negative for any acute stroke or neurological findings. Patient given IV fluids and IV Zofran, patient still dry heaving, Reglan given, patient states that she does feel slightly better. CT abdomen pelvis unremarkable aside from adrenal cyst that appears benign. Mental health at bedside to evaluate patient, did offer patient detox, patient declined any detox services. She has been medically cleared, mental health does not feel that patient needs to stay for any medication adjustments due to patient's history of misuse of medications. On reevaluation patient does feel much better after antiemetics and IV fluids. Discussed with patient that she can be discharged home, discussed the importance of not drinking, entertaining the idea of detoxing since she does to seem to have a history of alcoholism. Patient denied any SI or HI. I do feel is appropriate for patient to be sent home, patient is not a danger to herself or to others. After performing a Medical Screening Examination, I estimate there is LOW risk for ACUTE APPENDICITIS, BOWEL OBSTRUCTION, ACUTE CHOLECYSTITIS, PERFORATED DIVERTICULITIS, INCARCERATED HERNIA, PANCREATITIS, PELVIC INFLAMMATORY DISEASE, PERFORATED ULCER, ECTOPIC , or TUBO-OVARIAN ABSCESS, thus I consider the discharge disposition reasonable. Also, there is no evidence or peritonitis, sepsis, or toxicity. I have reevaluated this patient multiple times and no significant life threatening changes are noted. The patient and I have discussed the diagnosis and risks, and we agree with discharging home with close follow-up with the understanding that symptoms and presentations can change. We also discussed returning to the Emergency Department immediately if new or worsening symptoms occur. We have discussed the symptoms which are most concerning (e.g., bloody stool, fever, changing or worsening pain, vomiting) that necessitate immediate return. (STANLEY MALONE) - Vital Signs Vital signs: Temp Pulse Resp BP Pulse Ox 97.8 F 78 19 146/85 H 100 05/02/19 12:52 05/02/19 15:54 05/02/19 15:54 05/02/19 15:54 05/02/19 15:54 - Laboratory Laboratory results interpreted by me: 05/02/19 05/02/19 05/02/19 13:42 13:42 14:45 Seg Neutrophils % 78.3 H Monocytes % 1.8 L Absolute Neutrophils 8.3 H Glucose 124 H Albumin 5.1 H Urine Ascorbic Acid 40 H Salicylates < 1.0 L Acetaminophen < 10 L Discharge <MICKEY DA SILVA - Last Filed: 05/02/19 17:23> <STANLEY MALONE - Last Filed: 05/02/19 18:27> - Discharge Clinical Impression: Vomiting, Abdominal pain, Alcohol intoxication, Cannabis abuse Condition: Stable Disposition: HOME, SELF-CARE Instructions: Reglan ([facility]), Vomiting ([facility]), Antinausea Medication ([facility]), Intravenous (IV) Fluids ([facility]), Abdominal Pain ([facility]) Additional Instructions: You have been evaluated by both medical and behavioral health providers while in the emergency department. You have been cleared from both acute medical and psychiatric services. You should refrain from alcohol and cannabis use. Alcohol is a depressant and prolonged use can cause stomach issues, numerous other medical issues, some of which can be fatal. Both substances inhibit individuals who use them and cause cognitive impairment. It is recommended you seek voluntary inpatient detoxification if you have been drinking regularly and consistently. At the very least you should initiate services for medication management and therapy in an outpatient setting. Acute Alcohol Intoxication Your evaluation revealed very high levels of alcohol. You can from drinking a large amount of alcohol rapidly! Further, there's the risk of falls, traffic accidents, and fights. A high portion (about 50 percent) of the serious injuries seen in hospital emergency rooms are caused by alcohol. Alcohol overdosage is usually due to an underlying emotional or psychiatric problem. You may benefit from counselling. If "binge" drinking is an ongoing problem for you, or if you drink ANY AMOUNT of alcohol EVERY day, you most likely have a tendency to alcoholism. You should avoid alcohol totally. We can refer you for treatment. Persons with alcohol problems are often also prone to other addictions -- you should discuss any use of medications or drugs with the doctor. You should be watched at home for the next several hours by someone who has not been drinking. Get extra fluids for the next 24 hours. Call the doctor if there is repeated vomiting, increasing headache, decreasing level of alertness, or any other worsening. Follow-Up Care: You are encouraged to seek voluntary inpatient detoxification for alcohol especially if you have been drinking chronically. You have been provided the substance abuse resource sheet which has a list of detox facilities and [facility] Mobile Crisis number for assistance. At the very least you should follow up outpatient for medication management and therapy at a place such as [facility], you can walk in [phone] to initiate services. If your symptoms persist or worsen you should contact your physician immediately, utilize mobile crisis or return to the emergency department. Prescriptions: Metoclopramide HCl [Reglan 10 mg Tablet] 1 - 2 tab PO ASDIR PRN #10 tablet PRN Reason: Forms: Return to Work Referrals: [facility] [Outside] - Follow up as needed [facility] [Outside] - Follow up as needed DONALD HURST MD [ACTIVE STAFF] - Follow up as needed
[2019-05-02 14:08] LABS: ABSOLUTE BASOPHILS # (AUTO) 0.1 10^3/uL (0.0-0.2); ABSOLUTE MONOCYTES (AUTO) 0.2 10^3/uL (0.1-1.4); ABSOLUTE NEUT (AUTO) 8.3 10^3/uL (1.7-8.2); BASOPHILS % (AUTO) 0.8 % (0-2); EOSINOPHILS % (AUTO) 0.1 % (0-6); HEMATOCRIT 44.8 % (36.0-47.0); HEMOGLOBIN 15.1 g/dL (12.0-15.5); MEAN CORPUSCULAR HGB CONC 33.7 g/dL (32.0-36.0); MEAN CORPUSCULAR VOLUME 95 fl (80-97); MONOCYTES % (AUTO) 1.8 % (3-13); PLATELET COUNT 281 10^3/uL (150-450); RED BLOOD COUNT 4.71 10^6/uL (3.72-5.28); RED CELL DISTRIBUTION WIDTH 13.4 % (11.5-14.0); SEGMENTED NEUTROPHILS % (AUTO) 78.3 % (42-78); TOTAL CELLS COUNTED % (AUTO) 100 %; WHITE BLOOD COUNT 10.5 10^3/uL (4.0-10.5)
--- NOTE | 2019-05-02 14:14 | RADIOLOGY REPORT (SQ) ---
EXAM DESCRIPTION: CT HEAD WITHOUT COMPLETED DATE/TIME: 05/02/2019 1:56 pm REASON FOR STUDY: ams COMPARISON: None. TECHNIQUE: Axial images acquired through the brain without intravenous contrast. Images reviewed wi th bone, brain and subdural windows. Additional sagittal and coronal reconstructions were generated. Images stored on PACS. All CT scanners at this facility use dose modulation, iterative reconstruction, and/or weight based d osing when appropriate to reduce radiation dose to as low as reasonably achievable (ALARA). [facility]: Dose Right [facility]: CareDose [facility]: Dose Right [facility]: Teradose 4D [facility]: VGBio RADIATION DOSE: CT Rad equipment meets quality standard of care and radiation dose reduction techniq ues were employed. CTDIvol: 53.2 mGy. DLP: 2141 mGy-cm. mGy. LIMITATIONS: None. FINDINGS: VENTRICLES: Normal size and contour. CEREBRUM: No masses. No hemorrhage. No midline shift. No evidence for acute infarction. Normal gra y/white matter differentiation. No areas of low density in the white matter. CEREBELLUM: No masses. No hemorrhage. No alteration of density. No evidence for acute infarction. EXTRAAXIAL SPACES: No fluid collections. No masses. ORBITS AND GLOBE: No intra- or extraconal masses. Normal contour of globe without masses. CALVARIUM: No fracture. PARANASAL SINUSES: No fluid or mucosal thickening. SOFT TISSUES: No mass or hematoma. OTHER: No other significant finding. IMPRESSION: NORMAL BRAIN CT WITHOUT CONTRAST. EVIDENCE OF ACUTE STROKE: NO. COMMENT: Quality ID # [id number]: Final reports with documentation of one or more dose reduction techniques (e.g., Automated exposure control, adjustment of the mA and/or kV according to patient size, use of iterative reconstruction technique) TECHNICAL DOCUMENTATION: JOB ID: [id number] [employer]- All Rights Reserved Reading location - IP/workstation name: [email or web address]
--- NOTE | 2019-05-02 14:21 | RADIOLOGY REPORT (SQ) ---
EXAM DESCRIPTION: CHEST SINGLE VIEW COMPLETED DATE/TIME: 05/02/2019 2:02 pm REASON FOR STUDY: vomiting/epigastric pain COMPARISON: None. NUMBER OF VIEWS: One view. TECHNIQUE: Single frontal radiographic view of the chest acquired. LIMITATIONS: None. FINDINGS: LUNGS AND PLEURA: No opacities, masses or pneumothorax. No pleural effusion. MEDIASTINUM AND HILAR STRUCTURES: No masses. Contour normal. HEART AND VASCULAR STRUCTURES: Heart normal in size. Normal vasculature. BONES: No acute findings. HARDWARE: None in the chest. OTHER: No other significant finding. IMPRESSION: NO SIGNIFICANT RADIOGRAPHIC FINDING IN THE CHEST. TECHNICAL DOCUMENTATION: JOB ID: [id number] [employer]- All Rights Reserved Reading location - IP/workstation name: [email or web address]
[2019-05-02 14:26] LABS: ALBUMIN 5.1 g/dL (3.5-5.0); ALCOHOL 178 mg/dL (NONE DETECTED); ALKALINE PHOSPHATASE 64 U/L (38-126); ANION GAP 16 (5-19); ASPARTATE AMINO TRANSFERASE 35 U/L (14-36); BILIRUBIN,DIRECT 0.1 mg/dL (0.0-0.4); BILIRUBIN,TOTAL 0.2 mg/dL (0.2-1.3); BLOOD UREA NITROGEN 10 mg/dL (7-20); CALCIUM 9.3 mg/dL (8.4-10.2); CARBON DIOXIDE 23 mmol/L (22-30); CHLORIDE 106 mmol/L (98-107); GLUCOSE 124 mg/dL (75-110)
[2019-05-02 14:30] LABS: ACETAMINOPHEN < 10 ug/mL (10-30); SALICYLATE < 1.0 mg/dL (2.0-20.0)
[2019-05-02 15:06] LABS: APPEARANCE,URINE SLIGHTLY-CLOUDY; BILIRUBIN,URINE NEGATIVE (NEGATIVE); COLOR,URINE YELLOW; GLUCOSE, URINE NEGATIVE (NEGATIVE); KETONES,URINE NEGATIVE (NEGATIVE); LEUKOCYTE ESTERASE,URINE NEGATIVE (NEGATIVE); NITRITE,URINE NEGATIVE (NEGATIVE); PROTEIN,URINE NEGATIVE (NEGATIVE); URINE SPECIFIC GRAVITY 1.015; UROBILINOGEN,URINE NEGATIVE mg/dL (<2.0)
[2019-05-02] MEDS ORDERED: NORMAL SALINE 1000 ML 1,000 ML IV ONE (15:20)
[2019-05-02] MEDS ORDERED: METOCLOPRAMIDE HCL INJ/PF 10 MG/2 ML SDV IV ONE (15:26)
[2019-05-02 15:28] LABS: URINE AMPHETAMINES SCREEN NEGATIVE; URINE BARBITURATES SCREEN NEGATIVE; URINE BENZODIAZEPINES SCREEN NEGATIVE; URINE COCAINE SCREEN NEGATIVE; URINE MARIJUANA (THC) SCREEN UNCONFIRMED POSITIVE; URINE METHADONE SCREEN NEGATIVE; URINE PHENCYCLIDINE SCREEN NEGATIVE
--- NOTE | 2019-05-02 16:10 | PSYCHOLOGICAL NOTE ---
Psych Note - Psych Note Date seen by psych provider: 05/02/19 Time seen by psych provider: 15:28 - Discussion with ED Physician at 1528, Chart review at 1547. Evaluation at 1550. Check back in [facility] ED Physician at 1600. Psych Note: Presenting Problem: Alcohol Use, Serum Alcohol Level was 178, UDS positive for Cannabis, patient seen by [facility] 04/10/19 for alcohol relapse (Serum Alcohol Level was 286 then, patient very shaky/tremulous during this previous visit, UDS positive for Cannabis then) and linked her to [facility] for detox and she met with Stephanie. Patient stated there were no beds available. Today she cam to the ED for vomiting and stomach pain. She admitted to drinking last night and denied continuous drinking since last ED visit. She denied wanting detox. She has been getting fluids and an Abdomen CT was ordered. She was able to answer questions accordingly when addressed, was in the position or buckled over in pain from stomach and at one point started shivering (lips quivered, teeth chattered), and was shaky. Friend Klever at bedside with concern for her stomach pain. She denied SI/HI and these were never presenting concerns. When the attending nurse was assertive with patient she stopped some of her behaviors such as sticking hands down throat and was more engaging in discussion. She was alert and oriented x5 with linear thinking and no observed psychosis. Diagnosis: Polysubstance Use 303.90 (F10.20) Alcohol Use Disorder, Severe 304.20 (F12.20) Cannabis Use Disorder, Severe 311 (F32.9) Unspecified Depressive Disorder by Hx per patient 300.00 (F41.9) Unspecified Anxiety Disorder by Hx per patient Medication recommendations made by the psychiatric medical provider, Dr. Shant MD., includes: Impression/Plan: Patient is cleared from acute psychiatric services. She denied SI/HI, no observed psychosis, alert and oriented x 5, able to engage more in discussion. Provided patient with the SA resource sheet which lists detox facilities and [facility] for assistance with voluntary detoxification. Provided the outpatient MH resource sheet and highlighted [facility] for walk in to initiate outpatient MH services. Consulted with Dr. Hood regarding the management and care of patient. ED Physician in agreement with recommendations.
[2019-05-02] MEDS ORDERED: PROCHLORPERAZINE EDISYLATE INJ 10 MG/2 ML VIAL IV ONE (17:03)
--- NOTE | 2019-05-02 17:21 | RADIOLOGY REPORT (SQ) ---
EXAM DESCRIPTION: CT ABD/PELVIS WITH IV ONLY COMPLETED DATE/TIME: 05/02/2019 4:54 pm REASON FOR STUDY: n/v, abd pain COMPARISON: 03/08/2019 TECHNIQUE: CT scan of the abdomen and pelvis performed using helical scanning technique with dynamic intravenous contrast injection. No oral contrast. Images reviewed with lung, soft tissue, and bone windows. Reconstructed coronal and sagittal MPR images reviewed. Delayed images for evaluation of the urinary system also acquired. All images stored on PACS. All CT scanners at this facility use dose modulation, iterative reconstruction, and/or weight based d osing when appropriate to reduce radiation dose to as low as reasonably achievable (ALARA). [facility]: Dose Right [facility]: CareDose [facility]: Dose Right [facility]: Teradose 4D [facility]: [place] CONTRAST TYPE AND DOSE: contrast/concentration: Isovue 350.00 mg/ml; Total Contrast Delivered: 57.0 ml; Total Saline Delivered: 65.0 ml RENAL FUNCTION: None required. The patient is less than 50 years old. RADIATION DOSE: CT Rad equipment meets quality standard of care and radiation dose reduction techniq ues were employed. CTDIvol: 4.9 - 5.5 mGy. DLP: 521 mGy-cm.. LIMITATIONS: None. FINDINGS: LOWER CHEST: No significant findings. No nodules or infiltrates. LIVER: Normal size. No masses. No dilated ducts. SPLEEN: Normal size. No focal lesions. PANCREAS: No masses. No significant calcifications. No adjacent inflammation or peripancreatic fluid collections. Pancreatic duct not dilated. GALLBLADDER: No identified stones by CT criteria. No inflammatory changes to suggest cholecystitis. ADRENAL GLANDS: No significant masses or asymmetry. RIGHT KIDNEY AND URETER: No solid masses. No significant calcifications. No hydronephrosis or hyd roureter. LEFT KIDNEY AND URETER: No solid masses. No significant calcifications. No hydronephrosis or hydr oureter. AORTA AND VESSELS: No aneurysm. No dissection. Renal arteries, SMA, celiac without stenosis. RETROPERITONEUM: No retroperitoneal adenopathy, hemorrhage or masses. BOWEL AND PERITONEAL CAVITY: No masses or inflammatory changes. No free fluid or peritoneal masses. APPENDIX: Surgically absent. PELVIS: Urinary bladder is normal. There is no significant free fluid. There is a 26 mm right adnex al cyst. ABDOMINAL WALL: No masses. No hernias. BONES: No significant or acute findings. OTHER: No other significant finding. IMPRESSION: Right adnexal cyst. This is almost certainly benign. No additional imaging is required for this. There is no acute finding in the abdomen or pelvis. TECHNICAL DOCUMENTATION: JOB ID: [id number] Quality ID # [id number]: Final reports with documentation of one or more dose reduction techniques (e.g., Au tomated exposure control, adjustment of the mA and/or kV according to patient size, use of iterative reconstruction technique) 2010 [employer]- All Rights Reserved Reading location - IP/workstation name: [email or web address]
[2019-05-02 19:36] VITALS: BP 127/74
--- NOTE | 2019-05-03 14:52 | EKG REPORT ---
SEVERITY:- ABNORMAL ECG - SINUS RHYTHM NONSPECIFIC T ABNORMALITIES, INFERIOR LEADS : Confirmed by: Errol Lui 03-May-2019 14:51:07
== END 2019-05-02 19:35 | disposition home or self-care (01) ==
LOC: ER 12:31
DX: F10.229 Alcohol dependence with intoxication, unspecified (principal); Y90.6 Blood alcohol level of 120-199 mg/100 ml; R11.2 Nausea with vomiting, unspecified; F12.10 Cannabis abuse, uncomplicated; R10.817 Generalized abdominal tenderness; E27.8 Other specified disorders of adrenal gland; Z91.012 Allergy to eggs; Z90.49 Acquired absence of other specified parts of digestive tract
CPT/HCPCS: 93005; 99285; 96361; 96374; 96375; 36415; 80307 ×4; 84702; 83690; 85025; 81025; 80053; 81001; 71045; 70450; 74177; 93010; J2765; J0780; J2405; J7030; S0028

== ENCOUNTER 2019-11-06 11:10 | Emergency (ER) | payer SELFPAY | END 2019-11-06 11:24 | disposition left against medical advice (07) | LOC: ER 11:10 | DX: Z53.21 Procedure and treatment not carried out due to patient leaving prior to being seen by health care provider (principal) ==